=== PATIENT | female | born 1935 | race Caucasian/White ===

== ENCOUNTER 2019-11-04 22:36 | Observation (INO) | payer MEDICARE, SELFPAY ==
--- NOTE | 2019-11-04 22:30 | RT.EKG_ITS ---
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 No evidence of STEMI. No significant ST elevations or depressions. Negativ e for SCARBOSA criterion
[2019-11-04 22:41] VITALS: BP 165/70; PULSE 91; RESP 22; TEMP 36.6; O2SAT 96
--- NOTE | 2019-11-04 22:45 | DI.RAD_ITS ---
EXAM: XR CHEST 2V PA LATERAL CLINICAL HISTORY: chest pain, central TECHNIQUE: 2D digital imaging was performed. COMPARISON: No exams were available for comparison FINDINGS: MEDIASTINUM: Normal. HEART: Normal. PULMONARY VASCULATURE: Normal. LUNGS: Clear. PLEURAL SPACE: No pleural effusion or pneumothorax. BONE:Age-appropriate degenerative changes are present. OTHER FINDINGS:Normal. IMPRESSION: No acute pulmonary findings. DATA REPOSITORY: RADIATION DOSE DELIVERED:
[2019-11-04 22:47] VITALS: BP 146/64; PULSE 83; PULSE 86; RESP 21; O2SAT 95
--- NOTE | 2019-11-04 22:48 | W.ED.GENAD ---
Discharge Plan Disposition Patient Disposition: [facility] INPATIENT Condition: Good Discharge Details Chief Complaint: Chest Pain Clinical Impression: Chest pain Admit Date/Time: 11/05/19 02:26 Admit Provider: Manish Mccloud Attending Provider: Manish Mccloud Primary Care Provider: Indy Junior ED Provider: Maxwell Harding Discharge Data Discharge Date/Time-TO BE ENTERED AT DEPARTURE: 11/05/19 03:19 Medical Decision Making 84-year-old female with very little past medical history except for arthritis who presents today for evaluation of chest pain. Patient states that she has recently moved from her 3 bedroom house to an apartment. During the moving process she did notice increased fatigue, yesterday she noticed a mild amount of pressure in her lower chest region, it would come and go, no known aggravating or relieving factors. Today at noon she noticed that it got notably worse and constant. She describes it as an achy pressure-like sensation as if there is something tight around her chest. She has noticed increased fatigue but denies any cough, shortness of breath, pleuritic chest pain, arm neck or shoulder pain. She denies any aggravating or relieving factors. She denies any worsening of her symptoms with exertion. She denies any change in her symptoms when lying flat or sitting upright. She has noticed occasional diarrhea over the last day, but no blood. She denies any cough, or previous symptoms like this. Last stress test was greater than 10 years ago. She has no cardiac history. No history of myocardial infarction in her parents. She does have a history of pacemaker with her mother though. All of her children are adopted. She did smoke 60 years ago. She has no other complaints at this time. Denies PE risk factors such as recent long car rides, immobilization, recent surgery, prior history of DVT or PE, family history of PE or DVT, morbid obesity, exogenous estrogen and smoking, hemoptysis, history of cancer. Physical exam is notably benign, no reproducible chest pain. Patient is requested to hold off on any aspirin as it notably upsets her stomach. Symptoms appearing consistent with ACS, but because of her age it is certainly on the differential, as is PE for which we will get a d-dimer. Nitroglycerin did not improve her symptoms at all here. In fact actually slightly made it worse. Will give a GI cocktail though. Will monitor closely evaluate for concerning etiologies and reassess. There is certainly a chance this may just be a musculoskeletal etiology as well but given her age and risk factors I feel that further work-up is indicated currently. 12:10 AM Patient's laboratory work-up is returned notably unremarkable, no white count, bandemia or left shift. D-dimer is age-adjusted negative at 636. Electrolytes normal, renal function normal, troponin normal. Chest x-ray negative for acute process. Patient symptoms are unrelieved with nitroglycerin, also unchanged by GI cocktail. With the patient's age, and atypical symptoms I do feel that she would benefit from serial troponins and or further cardiac evaluation. We did discuss admission versus discharge and close follow-up, patient's preference certainly to stay overnight which I think is notably reasonable given her age and typical symptomatology. We will plan to admit, with continued serial troponins, likely stress test in the morning if available. 2 AM Repeat troponin has returned to normal. EKG does demonstrate slight changes. Continue to recommend admission. Discussed case with Dr. Mccloud, agrees with the assessment and plan. Of note bedside ultrasound was performed but I did have notable difficulty in the evaluation of the cardiac images, no significant pericardial effusion. Seems to demonstrate reasonable ejection fraction throughout. I have extensively reviewed the treatment plan with the patient. I have addressed all patient concerns at this time. I have also discussed the plan with the admitting physician and they agree with the current assessment and plan and have agreed to assume responsibility for the patient. All parties demonstrate verbal understanding and agreement with our assessment and plan at this time. 4:40 AM I did speak with the patient's daughter , and discussed the case with her as well. 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 No evidence of STEMI. No significant ST elevations or depressions. Negative for SCARBOSA criterion EKG 00:19 Rate 86, intervals normal, sinus rhythm, right bundle branch block, slight alteration from EKG earlier this evening. T waves in V1 and V2 are now upright, minimal flattening of V4 V5 and V6 comparatively, no evidence of significant ST elevations or depressions though, no evidence of STEMI negative for SCARBOSSA bacteria. FINDINGS: Lungs: Clear lungs. Pleural space: No pneumothorax. No sizeable effusion. Heart/Mediastinum: Cardiomediastinal silhouette is within normal limits. Bones/joints: Scattered bony degenerative changes. IMPRESSION: No acute cardiopulmonary process. Thank you for allowing us to participate in the care of your patient. Dictated and Authenticated by: Tunde Eldridge DO 11/04/2019 11:58 PM Eastern Time ([place] & [place]) HPI General Date/Time Provider Initiated Documentation: 11/04/19 22:37. HPI Narrative: 84-year-old female with very little past medical history except for arthritis who presents today for evaluation of chest pain. Patient states that she has recently moved from her 3 bedroom house to an apartment. During the moving process she did notice increased fatigue, yesterday she noticed a mild amount of pressure in her lower chest region, it would come and go, no known aggravating or relieving factors. Today at noon she noticed that it got notably worse and constant. She describes it as an achy pressure-like sensation as if there is something tight around her chest. She has noticed increased fatigue but denies any cough, shortness of breath, pleuritic chest pain, arm neck or shoulder pain. She denies any aggravating or relieving factors. She denies any worsening of her symptoms with exertion. She denies any change in her symptoms when lying flat or sitting upright. She has noticed occasional diarrhea over the last day, but no blood. She denies any cough, or previous symptoms like this. Last stress test was greater than 10 years ago. She has no cardiac history. No history of myocardial infarction in her parents. She does have a history of pacemaker with her mother though. All of her children are adopted. She did smoke 60 years ago. She has no other complaints at this time. Denies PE risk factors such as recent long car rides, immobilization, recent surgery, prior history of DVT or PE, family history of PE or DVT, morbid obesity, exogenous estrogen and smoking, hemoptysis, history of cancer. Related Data Home Medications Medication Instructions Recorded Confirmed naproxen sodium 220 mg PO PRN 02/12/13 11/04/19 Allergies Allergy/AdvReac Type Severity Reaction Status Date / Time aspirin AdvReac Mild abdominal Verified 11/04/19 22:53 discomfort General Stated Complaint: Chest Pain OWEN: 2 Review of Systems All systems reviewed & are unremarkable except as noted in HPI and below PFSH Medical History Arthritis of knee (Acute 02/12/13) Hyperlipidemia (Acute) Surgical History History of appendectomy (Chronic) History of cataract surgery (Chronic 04/22/16) Right- 04/22/16 Left- 05/06/16 History of dilation and curettage (Acute) History of tonsillectomy (Chronic) Family History Father Colon cancer Diabetes Hypertension Heart disease Mother Heart disease Low blood pressure Osteoporosis Other Hyperlipidemia Personal history of malignant neoplasm Social History Smoking/Tobacco Use Status: Former Tobacco Use Quit Date: 04/25/1960 Tobacco: How many years used: 10 Alcohol Intake: former Drug use: Never Substance use type: does not use Household members: none Housing: house Number of Children: 4 number of grandchildren: 11 Do you need help understanding health information?: Rarely current occupation: retired Sexually active: No Do you think of yourself as: straight/heterosexual Current gender identity: female What is your relationship status?: Panel score (0-1 are the most socially isolated patients): 0 What type of physical activity do you participate in: other Details: housekeeping of large home, up and down stairs, dog and cat care Do you feel safe at home: Yes Do you feel safe in your relationship?: Yes Exam Narrative Exam Narrative: 1.Const: Well-nourished, Well-developed, appearing stated age 2.Eyes: PERRL, no conjunctival injection, and symmetrical lids. 3.ENT: Atraumatic external nose and ears. Moist MM. Neck: Symmetric, trachea midline, No thyromegaly. 4.CVS: +S1/S2, mild systolic murmur auscultated loudest at second left and right intercostal space in the parasternal border. Peripheral pulses 2+ and equal in all extremities. Brisk capillary refill in all extremities. No reproducible chest wall tenderness 5.RESP: Unlabored respiratory effort. Clear to auscultation bilaterally. No wheezes rales or rhonchi 6.GI: Soft, Nontender/Nondistended, No hepatosplenomegaly. No guarding or rebound. 7.MSK: Normocephalic/Atraumatic, Extremities w/o deformity or ttp No cyanosis or clubbing, Normal movement of all extremities 8.Skin: Warm, Dry. No rashes or lesions. 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 Sensation grossly intact, no focal neurologic deficits. 10.Psych: (AAO) x3. Appropriate mood and affect Course Vital Signs Vital signs: Vital Signs Temperature 36.6 C 11/04/19 22:41 Pulse 91 H 11/04/19 22:41 Respiratory Rate 22 11/04/19 22:41 Blood Pressure 165/70 H 11/04/19 22:41 Pulse Oximetry 96 11/04/19 22:41 Temperature 36.6 C 11/04/19 22:41 Temperature Source Temporal Artery Scan 11/04/19 22:41 Pulse 91 H 11/04/19 22:41 Respiratory Rate 22 11/04/19 22:41 Respiratory Effort 11/04/19 22:43 Blood Pressure 165/70 H 11/04/19 22:41 Blood Pressure Position Sitting 11/04/19 22:41 Pulse Oximetry 96 11/04/19 22:41 Oxygen Delivery Method Room Air 11/04/19 22:41 Oxygen Flow Rate 0 11/04/19 22:41 Pain Level 2 11/04/19 22:41
[2019-11-04 22:51] VITALS: BP 155/67; PULSE 79; PULSE 80; RESP 13; O2SAT 94
[2019-11-04 22:56] VITALS: BP 138/64; PULSE 81; RESP 17; O2SAT 94
[2019-11-04 22:57] LABS: Abs Immature Grans 0.01 k/cumm (0.0-0.09); Absolute Basophil Count 0.01 k/cumm (0.0-0.2); Absolute Lymphocyte Count 1.52 k/cumm (1.2-3.4); Absolute Monocyte Count 0.78 k/cumm (0.11-0.7); Absolute Neutrophil Count 5.85 k/cumm (1.2-6.7); Basophils % 0.1; Eosinophils % 1.2; HCT 37.9 % (36.0-46.0); HGB 12.7 g/dL (12.0-15.5); Immature Grans % 0.1 %; Lymphocytes % 18.4; Mean Corp. HGB Concentration 33.5 g/dL (32.0-36.0); Mean Corpuscular Hemoglobin 27.5 pg (27.0-33.0); Mean Corpuscular Volume 82.2 fL (80-95); Mean Platelet Volume 10.5 fL (8.0-11.0); Monocytes % 9.4; Neutrophils % 70.8; Platelet Count 188 x1000/uL (130-400); RBC 4.61 m/cumm (4.00-5.20); RBC Distribution Width 16.3 % (11.7-14.6); White Blood Cell Count 8.27 k/cumm (4.4-10.8)
[2019-11-04 23:01] VITALS: BP 122/71; PULSE 87; PULSE 89; RESP 16; O2SAT 95
[2019-11-04 23:12] LABS: ALT 18 U/L (14-59); AST 19 U/L (15-37); Albumin 3.5 g/dL (3.4-5.0); Alkaline Phosphatase 64 U/L (46-116); Anion Gap 11.3 mmol/L (3-11); BUN 13 mg/dL (7-18); Bilirubin, Total 0.7 mg/dL (0.2-1.0); CO2 24.7 mmol/L (21.0-32.0); CREATININE 0.64 mg/dL (0.55-1.02); Calcium 8.5 mg/dL (8.5-10.1); Chloride 102 mmol/L (98-107); Glucose 127 mg/dL (74-106); Magnesium 1.8 mg/dL (1.8-2.4); Potassium 3.6 mmol/L (3.5-5.1); Sodium 138 mmol/L (136-145); Total Protein 7.2 g/dL (6.4-8.2)
[2019-11-04 23:13] LABS: Troponin I < 0.05 ng/mL (<0.06)
[2019-11-04 23:28] LABS: D-Dimer 636 ng/mlFEU (<500)
[2019-11-04 23:31] VITALS: BP 129/57; PULSE 63; PULSE 64; RESP 12; O2SAT 94
--- NOTE | 2019-11-04 23:59 | DI.VRAD_ITS ---
PROCEDURE INFORMATION: Exam: XR Chest, 2 Views Exam date and time: 11/04/2019 11:43 PM Age: 84 years old Clinical indication: Other: Central; Patient HX: Chest pain for a few days increasing TECHNIQUE: Imaging protocol: XR of the chest Views: 2 views. COMPARISON: No relevant images were readily available for comparison purposes. FINDINGS: Lungs: Clear lungs. Pleural space: No pneumothorax. No sizeable effusion. Heart/Mediastinum: Cardiomediastinal silhouette is within normal limits. Bones/joints: Scattered bony degenerative changes. IMPRESSION: No acute cardiopulmonary process. Dictated and Authenticated by: Tunde Eldridge MD. Ordering:LAZARO Arreola MD
[2019-11-05] VITALS (9 sets, daily range): BP systolic 121–161; BP diastolic 48–93; PULSE 52–68; RESP 11–22; TEMP 36.4–36.5; O2SAT 92–99
--- NOTE | 2019-11-05 | RT.EKG_ITS ---
APPROVED REPORT Exam: Resting ECG Patient Location: E HR:57 bpm ECG Measurements Heart Rate 57 AXIS OH 165 P 34 QRSd 131 QRS -38 QT 458 T 14 QTc 446 <Conclusion> EKG 00:19 Rate 86, intervals normal, sinus rhythm, right bundle branch block, slight alteration from EKG earlie r this evening. T waves in V1 and V2 are now upright, minimal flattening of V4 V5 and V6 comparative ly, no evidence of significant ST elevations or depressions though, no evidence of STEMI negative for SCARBOSSA bacteria.
[2019-11-05 02:05] LABS: Troponin I < 0.05 ng/mL (<0.06)
--- NOTE | 2019-11-05 06:26 | HPE_ITS ---
Date of service: 11/05/19 Time of Service: 06:26 Assessment and Plan Assessment and plan (1) Atypical chest pain: Start date: 11/05/19 Status: Acute Assessment and plan: This is an 84-year-old lady who presented with atypical chest pressure which was retrosternal and not leave by GI cocktail or nitroglycerin sublingually. She had mild EKG changes with V1-2 T wave normalization repeat EKG in the ED. Is pain-free at the time I saw her. She said that had retrosternal chest pressure crescendoed before resolving and felt like ingestion, we need to consider gallbladder disease. Only risk factors for heart disease include hyperlipidemia and increased abdominal girth but she is very active with very remote history of smoking tobacco and no history of hyp ertension. There is no severe family history of heart disease. We will have her seen by cardiology with an exercise stress test and update her lipid profile as well as ultrasound her gallbladder. She is n.p.o. She is a full code. (2) Heart murmur, systolic: Start date: 11/05/19 Status: Acute Assessment and plan: Echocardiogram to assess. The murmur clinically is aortic stenosis and she has no history of progressive dyspnea upon exertion. (3) Hyperlipidemia: Status: Chronic Assessment and plan: Update lab this morning for cardiovascular risk stratification. Qualifiers: Hyperlipidemia type: unspecified Qualified Code(s): E78.5 - Hyperlipidemia, unspecified History of Present Illness History of Present Illness Chief Complaint: Retrosternal chest pressure Narrative: This is a generally healthy 84-year-old lady who has been over 10 years who presented to the ED with retrosternal chest pressure setting over 24 hours. She recently moved from her house to an apartment and had inc reased activity lifting boxes but no chest discomfort during her lifting and work. She began to have intermittent retrosternal chest pressure as tightness which was 2-3 out of 10 the day before presentation and on the day of presentation it became more severe rated 5 out of 10 and not resolving cre scendoing to 7-8 out of 10. She had no associated nausea or vomiting. She had no complaints of dyspnea or radiation of the pain. She had had a previous stress test many years ago but has had no recent cardiac work-up or cardiac history though she does have a systolic murmur auscultated in the ED. In the ED her EKG had no acute changes but some T wave normalization in V1/V2. At the time I saw the patient she was pain-free. She does still have her gallbladder. She denies the pain being associated with eating. She admitted for observation and to repeat troponins this morning as well as obtain cardiac consultation with bubble exercise stress test. I will also obtain an ultrasound gallbladder. Patient only significant history is arthritis for which she takes naproxen. She thought that the retrosternal chest pressure was like heartburn or indigestion but he did not want to a GI cocktail. Patient had no significant family history of heart disease and all of her children are adopted. She has had no previous chest pain and has had no abdominal surgeries except for an appendectomy. She smoked when she was in her 20s. Review of Systems Narrative: 13 point review of systems otherwise unrevealing or stable. The patient is moderately obese and does have generalized arthritis. She is very active in her group home. [facility] Medical History Arthritis of knee (Acute 02/12/13) Hyperlipidemia (Acute) Surgical History History of appendectomy (Chronic) History of cataract surgery (Chronic 04/22/16) Right- 04/22/16 Left- 05/06/16 History of dilation and curettage (Acute) History of tonsillectomy (Chronic) Family History Father Colon cancer Diabetes Hypertension Heart disease Mother Heart disease Low blood pressure Osteoporosis Other Hyperlipidemia Personal history of malignant neoplasm Social History Smoking/Tobacco Use Status: Former Tobacco Use Quit Date: 04/25/1960 Tobacco: How many years used: 10 Alcohol Intake: former Drug use: Never Substance use type: does not use Household members: none Housing: house Number of Children: 4 number of grandchildren: 11 Do you need help understanding health information?: Rarely current occupation: retired Sexually active: No Do you think of yourself as: straight/heterosexual Current gender identity: female What is your relationship status?: Panel score (0-1 are the most socially isolated patients): 0 What type of physical activity do you participate in: other Details: housekeeping of large home, up and down stairs, dog and cat care Do you feel safe at home: Yes Do you feel safe in your relationship?: Yes Meds Home Medications and Allergies Home Medications Medication Instructions Recorded Confirmed Type naproxen sodium 220 mg PO PRN 02/12/13 11/04/19 History Allergies Allergy/AdvReac Type Severity Reaction Status Date / Time aspirin AdvReac Mild abdominal Verified 11/04/19 22:53 discomfort Exam Narrative Exam Narrative: General: Patient appears appropriate age, no acute distress, alert and oriented x3 and moderately obese over the trunk mostly. HEENT: Normocephalic, eyes with pupils equal and reactive light symmetrically, extraocular movement intact and sclera anicteric. Oropharynx with dry oral mucosa and fair dentition. External ears normal. Neck: Supple without JVD. Lungs: Clear to auscultation percussion. No focalizing findings. Back: Slightly stooped posture with no CVA tenderness. Breast: Exam deferred. Heart: 3/6 crescendo systolic murmur over left sternal border, regular rate and rhythm with no appreciable gallops. Abdomen: Slight guarding right upper quadrant but no Montoya sign and no palpable hepatosplenomegaly. Soft and nontender to palpation. Bowel sounds positive all quadrants. Genitalia/rectal: Exam deferred. Extremities: No pitting edema, cyanosis or clubbing. Arthritic changes of the larger joints. Fair range of motion of all joints. Skin: Darkly tanned, warm and dry with no rash noted. Neuro: Cranial nerves II-12 grossly intact, no focalizing motor deficits. Psych: Normal thought processes, remote and recent memory intact. Normal mood and affect. Results Labs Result diagrams: 11/04/19 22:50 11/04/19 22:50 Labs: Laboratory Results - last 24 hr 11/04/19 11/04/19 11/04/19 22:50 22:50 22:50 WBC 8.27 RBC 4.61 Hgb 12.7 Hct 37.9 MCV 82.2 MCH 27.5 MCHC 33.5 RDW 16.3 H Plt Count 188 MPV 10.5 Immature Gran % 0.1 Neutrophils % 70.8 Lymphocytes % 18.4 Monocytes % 9.4 Eosinophils % 1.2 Basophils % 0.1 Absolute Neutrophils 5.85 Absolute Lymphocytes 1.52 Absolute Monocytes 0.78 H Absolute Eosinophils 0.10 Absolute Basophils 0.01 D-Dimer 636 H Sodium 138 Potassium 3.6 Chloride 102 Carbon Dioxide 24.7 Anion Gap 11.3 H BUN 13 Creatinine 0.64 Estimated GFR/1.73 m2 >= 60.00 Glucose 127 H Calcium 8.5 Magnesium 1.8 Total Bilirubin 0.7 AST 19 ALT 18 Alkaline Phosphatase 64 Troponin I < 0.05 Total Protein 7.2 Albumin 3.5 11/05/19 01:45 WBC RBC Hgb Hct MCV MCH MCHC RDW Plt Count MPV Immature Gran % Neutrophils % Lymphocytes % Monocytes % Eosinophils % Basophils % Absolute Neutrophils Absolute Lymphocytes Absolute Monocytes Absolute Eosinophils Absolute Basophils D-Dimer Sodium Potassium Chloride Carbon Dioxide Anion Gap BUN Creatinine Estimated GFR/1.73 m2 Glucose Calcium Magnesium Total Bilirubin AST ALT Alkaline Phosphatase Troponin I < 0.05 Total Protein Albumin Last Vital Signs Temp 36.5 C 11/05/19 03:22 Pulse 66 11/05/19 03:22 Resp 18 11/05/19 03:22 BP 139/68 11/05/19 03:22 Pulse Ox 99 11/05/19 03:22 COVID-19 Screening Have you,or household,traveled outside [place] in last 14 days?: No Had IN PERSON contact w/suspected or confirmed C-19 person: No
--- NOTE | 2019-11-05 07:41 | PDOC.CMIN ---
- If Service Date Differs Date of service: 11/05/19 Time of Service: 07:41 Care Management Initial Assess REASON FOR HOSPITALIZATION:: Chest pain PAST MEDICAL HISTORY/PAST SURGICAL HISTORY:: Arthritis of knee (Acute 02/12/13). Hyperlipidemia (Acute). appendectomy (Chronic). History of cataract surgery (Chronic 04/22/16). Right- 04/22/16. Left- 05/06/16. History of dilation and curettage (Acute). History of tonsillectomy (Chronic) PREVIOUS FUNCTIONAL STATUS/SOCIAL/FAMILY SUPPORTS:: Maria Fernanda is a 84 year old female admitted with chest pain. She was in 2008 and lives alone. Maria Fernanda has 4 children that are grown and supportive. She is independent with ADL's, transportation and meals. 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 Maria Fernanda has a uzleta retirever at home. CURRENT FUNCTIONAL STATUS:: Maria Fernanda is sitting up in her chair, she is alert and engaged. She continues to have chest discomfort which provider is aware. Maria Fernanda was seen by municipal firefighter today, treatment to start today with PPI concerns that pain may be related to GERD and increase stress. Maria Fernanda described a recent incline in her stress and she is selling her home and moving to a small apartment. ADVANCE DIRECTIVES:: On file at [facility] agent Kristyn Hagen is the alternate (others to be consulted children) Has patient been provided with info about the portal/API?: Yes Did the patient sign up for the portal?: No (Enrolled) CODE STATUS:: Full Code INSURANCE COVERAGE / FINANCIAL ISSUES:: Medicare and AARP CURRENT HOME/COMMUNITY SERVICES/EQUIPMENT:: No current services in the community PRIMARY CARE PHYSICIAN:: POTENTIAL DISCHARGE NEEDS:: Follow up with primary care scheduled prior to discharge PATIENT/FAMILY EDUCATION NEEDS:: Discharge edcuation, limitations, medication management and follow up plan of care including ask me three. ANTICIPATED BARRIERS TO DISCHARGE:: No anticipated barriers TRANSPORTATION:: Via private car with family at time of discharge PLAN:: Maria Fernanda will be discharged home today pending test results and resolve of her chest discomfort. Anticipate no additional services at time of discharge. CM will continue to assess for discharge needs.
--- NOTE | 2019-11-05 08:00 | DI.US_ITS ---
EXAM: US ABDOMEN LIMITED CLINICAL HISTORY: Atypical chest pain, retrosternal pressure TECHNIQUE: Ultrasound abdomen performed using standard protocol. COMPARISON: No exams were available for comparison FINDINGS: ABDOMINAL AORTA AND IVC: Visualized portions normal caliber. PANCREAS: Normal where visualized. LIVER: Normal. Hepatopedal flow in the Portal Vein. GALLBLADDER: No evidence of cholelithiasis. No evidence of wall thickening. No pericholecystic fluid identified. BILIARY SYSTEM: Common bile duct measures 5.5 mm. No intrahepatic biliary ductal dilation. THORNTON'S SIGN: Negative. KIDNEYS: Right kidney is unremarkable. No evidence of renal calculi. No evidence of hydronephrosis. No renal mass or cyst identified. ASCITES: None seen. IMPRESSION: No evidence of cholelithiasis or biliary ductal dilatation. DATA REPOSITORY:
--- NOTE | 2019-11-05 08:00 | DI.US_ITS ---
APPROVED REPORT EXAM: Comprehensive 2D, Doppler, and color-flow Echocardiogram Patient Location: In-Patient Room/Bed: 212 Design Drafter: Chinyere Gabriel RDCS (AE) Indications: Atypical chest pain, Murmur Other Information Study Quality: Good Conclusion Normal left ventricular wall thickness and chamber size. Estimated ejection fraction is 60%. There are no segmental wall motion abnormalities Normal right ventricular size and systolic function Both atria are normal in size Valve is trileaflet and sclerotic without stenosis or regurgitation Mild mitral annular calcification. Trace mitral regurgitation Trace physiologic tricuspid regurgitation Wall motion Left Ventricle The left ventricle is normal size. The left ventricular systolic function is normal. The left ventric ular ejection fraction is within the normal range. There is normal left ventricular wall thickness. T here is normal LV segmental wall motion. Transmitral Doppler flow pattern suggests impaired LV relaxa tion. There is no ventricular septal defect visualized. LVEF is 60%. Right Ventricle The right ventricle is normal size. The right ventricular systolic function is normal. The RVSP is 34 .3 mmHg. Right ventricle is borderline hypertrophied. Atria The left atrium size is normal. The right atrium size is normal. The interatrial septum is intact wit h no evidence for an atrial septal defect. Aortic Valve The Aortic valve is sclerotic. Aortic valve is thickened but has adequate excursion. Aortic valve is trileaflet. There is no aortic valvular stenosis. No aortic regurgitation is present. Mitral Valve Mild mitral annular calcification. No evidence of mitral valve stenosis. Trace mitral regurgitation. Tricuspid Valve The tricuspid valve is normal in structure. There is no tricuspid valve stenosis. Trace tricuspid reg urgitation. Pulmonic Valve The pulmonary valve is normal in structure. There is no pulmonic valvular stenosis. Mild pulmonic reg urgitation. Great Vessels The aortic root is normal in size. 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 Pericardium There is no pericardial effusion. There is no pleural effusion. 2D Dimensions IVSD d PLAX 1.00 cm F: 0.6-1.0 LV Vol A2C d MOD 133.8 mL LVPW d PLAX 1.00 cm F: 0.6 - 1.0 LV Vol A4C d MOD 122.8 mL LVID d PLAX 4.78 cm F: 3.8 - 5.2 LA Area A4C s MOD 23.01 cm2 LVDs 3.25 cm F: 2.2 - 3.5 LA Area A2C s MOD 24.27 cm2 Ao Root d 3.09 cm F: 2.7 - 3.3 LV EF A4C MOD 61.7 % RA Area A4C 14.05 cm2 LV EF A2C MOD 62.5 % Ao Asc Diam d 3.65 cm F: 2.3 - 3.1 LV EF Biplane MOD 62.5 % LV EF Teichholz 59.4 % SV 82.11 mL LVEF (Riggs's) 62.53 % F: 54 - 74 LV Volume 131.31 mL F: 46 - 106 LV Volume Index 66.31 mL/m2 F: 29 - 61 LV Vol Biplane MOD 131.3 mL FS 31.55 % M-Mode TAPSE 2.57 cm (M/F) >1.7 LV Diastology MV E' medial 0.040 (>0.07 m/s) E/A Ratio 0.7 LV E/e MED 21.95 (<14) MV E Vmax 0.89 (0.4-1.3 m/s) MV E' lateral 0.051 (>0.1 m/s) MV A Vmax 1.20 (0.4-1.3 m/s) LV E/e LAT 17.25 (<14) MV E/A Ratio 0.71 MV E/E' medial 21.97 MV E/E' lateral 17.26 Aortic Valve LVOT Area 2.98 cm2 AoV Area Vmax 2.11 cm2 LVOT Vmax 1.26 m/s MERYL Mean Maurilio. 1.92 cm2 LVOT Mean Maurilio. 0.84 m/s LVOT Peak Grad 6.4 mmHg LVOT Mean Grad 3.3 mmHg LVOT VTI 0.350 m LVOT Diam s 1.90 cm AoV Vmax 1.78 m/s Velocity Ratio 0.70 AoV Mean Maurilio. 1.30 m/s AoV Peak Grad 12.7 mmHg LVOT SV 104.21 mL AoV Mean Grad 7.5 mmHg AoV VTI 0.419 m AoV Area VTI 2.49 cm2 Mitral Valve MV DT 344 (160-240 msec) MV PHT 100 msec MV Area PHT 2.21 cm2 Pulmonary Valve PV Vmax 1.03 (0.5-1.5 m/s) RVOT Peak Gr. 1.92 mmHg PV Peak Grad 4.2 mmHg RVOT Mean Gr. 1.35 mmHg PV Mean Grad 2.6 mmHg RVOT VTI 0.197 m PV VTI 0.235 m RVOT Vmax 0.69 m/s Tricuspid Valve TR Peak Grad 31.3 mmHg TR Vmax 2.80 m/s RA Pressure 3.00 mmHg RVSP (TR) 34.3 mmHg
[2019-11-05] MEDS: Heparin 5,000 UNITS/ML VIAL 5000 UNITS SC (10:07)
--- NOTE | 2019-11-05 10:26 | W.CARDCONSUL ---
Date of service: 11/05/19 Time of Service: 10:27 Assessment and Plan Assessment and plan (1) Atypical chest pain: Status: Acute Assessment and plan: The patient's chest pain as described is atypical for cardiac etiology. There is prolonged. There are no electrocardiographic changes. There is no evidence of myocardial necrosis or ischemia. As discussed with the hospitalist provider this is most likely gastrointestinal and efforts should be made to achieve symptomatic improvement If that occurs, I think the patient could be discharged to outpatient follow-up, with consideration for some type of stress test evaluation in future Thank you for the opportunity to participate in the care of this patient History of Present Illness History of Present Illness Chief Complaint: Chest and epigastric pressure Narrative: This 84-year-old woman presented to the hospital because of a pressure sensation in her epigastric and low sternal area. She recently moved and has been lifting and carrying boxes. She did not have any specific symptoms related to this other than that she was fatigued. Later at rest she began to have a pressure sensation which initially would come and go but then became persistent. It was not related to activity. It was not really related to food. She thought it might be gas. She presented to the hospital where her electrocardiogram showed a right bundle branch block. Serial cardiac enzymes have been negative. She recently had an echocardiogram done which showed normal left ventricular systolic function with an ejection fraction of 60%. Her aortic valve was sclerotic without significant stenosis or regurgitation Review of Systems Cardiovascular Cardiovascular: Reports as per [facility] Medical History Arthritis of knee (Acute 02/12/13) Hyperlipidemia (Chronic) Surgical History History of appendectomy (Chronic) History of cataract surgery (Chronic 04/22/16) Right- 04/22/16 Left- 05/06/16 History of dilation and curettage (Acute) History of tonsillectomy (Chronic) Family History Father Colon cancer Diabetes Hypertension Heart disease Mother Heart disease Low blood pressure Osteoporosis Other Hyperlipidemia Personal history of malignant neoplasm Social History Smoking/Tobacco Use Status: Former Tobacco Use Quit Date: 04/25/1960 Tobacco: How many years used: 10 Alcohol Intake: former Drug use: Never Substance use type: does not use Household members: none Housing: house Number of Children: 4 number of grandchildren: 11 Do you need help understanding health information?: Rarely current occupation: retired Sexually active: No Do you think of yourself as: straight/heterosexual Current gender identity: female What is your relationship status?: Panel score (0-1 are the most socially isolated patients): 0 What type of physical activity do you participate in: other Details: housekeeping of large home, up and down stairs, dog and cat care Do you feel safe at home: Yes Do you feel safe in your relationship?: Yes Exam Narrative Exam Narrative: Well-developed well-nourished no acute distress Eyes Pupils: PERRL EOM: EOM intact bilaterally Neck Other: Neck is supple trachea is midline carotid pulsations are normal in upstroke and volume there are no bruits Resp Auscultation: clear to auscultation bilaterally Cardio Other: Heart is regular, 1/6 to 2/6 systolic ejection quality murmur Skin Other: Warm and dry Extrem Other: There is no significant peripheral edema Results Last Vital Signs Temp 36.4 C L 11/05/19 07:15 Pulse 64 11/05/19 07:15 Resp 15 11/05/19 07:15 BP 129/73 11/05/19 07:15 Pulse Ox 92 L 11/05/19 07:15 Labs Result diagrams: 11/04/19 22:50 11/04/19 22:50 Labs: Laboratory Results - last 24 hr 11/04/19 11/04/19 11/04/19 22:50 22:50 22:50 WBC 8.27 RBC 4.61 Hgb 12.7 Hct 37.9 MCV 82.2 MCH 27.5 MCHC 33.5 RDW 16.3 H Plt Count 188 MPV 10.5 Immature Gran % 0.1 Neutrophils % 70.8 Lymphocytes % 18.4 Monocytes % 9.4 Eosinophils % 1.2 Basophils % 0.1 Absolute Neutrophils 5.85 Absolute Lymphocytes 1.52 Absolute Monocytes 0.78 H Absolute Eosinophils 0.10 Absolute Basophils 0.01 D-Dimer 636 H Sodium 138 Potassium 3.6 Chloride 102 Carbon Dioxide 24.7 Anion Gap 11.3 H BUN 13 Creatinine 0.64 Estimated GFR/1.73 m2 >= 60.00 Glucose 127 H Calcium 8.5 Magnesium 1.8 Total Bilirubin 0.7 AST 19 ALT 18 Alkaline Phosphatase 64 Troponin I < 0.05 Total Protein 7.2 Albumin 3.5 11/05/19 01:45 WBC RBC Hgb Hct MCV MCH MCHC RDW Plt Count MPV Immature Gran % Neutrophils % Lymphocytes % Monocytes % Eosinophils % Basophils % Absolute Neutrophils Absolute Lymphocytes Absolute Monocytes Absolute Eosinophils Absolute Basophils D-Dimer Sodium Potassium Chloride Carbon Dioxide Anion Gap BUN Creatinine Estimated GFR/1.73 m2 Glucose Calcium Magnesium Total Bilirubin AST ALT Alkaline Phosphatase Troponin I < 0.05 Total Protein Albumin
[2019-11-05] MEDS: Pantoprazole 40 MG TABCR PO (10:39)
[2019-11-05 12:03] LABS: Calculated LDL 100 mg/dL (<100); Cholesterol 191 mg/dL (<200); HDL Cholesterol 85 mg/dL (40-60); TSH (W/Ref FT4) 0.97 uIU/mL (0.36-3.74); Triglyceride 34 mg/dL (<150)
[2019-11-05 12:04] LABS: Troponin I < 0.05 ng/mL (<0.06)
--- NOTE | 2019-11-05 12:06 | W.PM.DS.N ---
Date of service: 11/05/19 Time of Service: 12:06 DS: Diagnosis Discharge Diagnosis (1) Atypical chest pain: Start date: 11/05/19 Start time: 12:06 Status: Acute Asessment and Plan: Echo with EF 60%, no abnormalites, otherwise, Cardiology states heart not etiology to pain. Does not need an outpatient stress at this time. Pain appears to start in belly and work up to mid stress. Increase in stress recently, with moving and other stressors, also not on PPI or H2 niecy. U/S negative for gallbladder. Given dose of mylanta with lidocaine and pain was gone. Will d/c home on PPI and lidocaine mix f/u with PCP in 2 weeks. Discharge Plan Disposition Patient Disposition: HOME Condition: Good Discharge Details Chief Complaint: Chest Pain Clinical Impression: Chest pain Reason For Visit: ATYPICAL CHEST PAIN Admit Date/Time: 11/05/19 02:26 Admit Provider: Manish Mccloud Attending Provider: Manish Mccloud Primary Care Provider: Indy Junior ED Provider: Maxwell Harding Hospital Course Hospital Course: 84 y.o female with PMH of HLD other cespedes healthy and active. No cardiac history or family history of cardiac problems. Presented to ED with atypical CP onset after not doing anything. EKG in ED revealing SR with Right BBB. Given one nitro in ED that made pain worse. She was admitted to obs for further management of echo, overnight obs and u/s. Abd us negative for abnormality. Echo with EF 60% no other abnormalities. Teley revealing SR with BBB. Cardiology consulted agrees this is not cardiac in nature. Pt did have severe pain following the echo stating starting in her abd raising up in her chest to midsternum not raidating anywhere. Given mylanta and lidocaine with good releif. PPI was also started. She is being discharged home, her pain is gone, will continue GI cocktaial and PPI follow up with PCP in 1 week. Home Meds and New Rx's Prescriptions: New alum-mag hydroxide-simeth [Mylanta Maximum Strength] 400-400-40 mg/5 mL suspension 5 ml PO QID PRNQty: 355 RF: 0 Lidocaine Viscous 2 % solution 1 applic MM BID PRNQty: 600 RF: 0 Continued naproxen sodium 220 MG tablet 220 mg PO PRN RF: 0 Discharge Instructions Instructions: Chest Pain (DC), Gastroesophageal Reflux Disease (DC) Additional Instructions: Take lidocaine with mylanta as needed. Follow up with your PCP in 2 weeks Try to find positive stress relievers YOUR ECHO WAS VERY ASSURING Activity:: Activity as Tolerated Equipment/Supplies:: No Equipment Needed Diet:: As Tolerated Discharge Orders Discharge Orders: Discharge Order (Routine); Ordered 11/05/19 Ordered By: Dinora Melchor DS: Summary Status at Discharge Functional status at discharge: independent ambulation Overall status at discharge: patient is back to baseline Mental Status: mental status grossly normal Speech and Movement: speech and movement normal Mood: congruent mood Affect: normal affect Exam Narrative Exam Narrative: General: Patient appears appropriate age, no acute distress, alert and oriented x3 and moderately obese over the trunk mostly. HEENT: Normocephalic, eyes with pupils equal and reactive light symmetrically, extraocular movement intact and sclera anicteric. Oropharynx with dry oral mucosa and fair dentition. External ears normal. Neck: Supple without JVD. Lungs: Clear to auscultation percussion. No focalizing findings. Back: Slightly stooped posture with no CVA tenderness. Breast: Exam deferred. Heart: 3/6 crescendo systolic murmur over left sternal border, regular rate and rhythm with no appreciable gallops. Abdomen: Slight guarding right upper quadrant but no Montoya sign and no palpable hepatosplenomegaly. Soft and nontender to palpation. Bowel sounds positive all quadrants. Genitalia/rectal: Exam deferred. Extremities: No pitting edema, cyanosis or clubbing. Arthritic changes of the larger joints. Fair range of motion of all joints. Skin: Darkly tanned, warm and dry with no rash noted. Neuro: Cranial nerves II-12 grossly intact, no focalizing motor deficits. Psych: Normal thought processes, remote and recent memory intact. Normal mood and affect. Psych Mental Status: mental status grossly normal Speech and Movement: speech and movement normal Mood: congruent mood Affect: normal affect DS: Data Vitals/I&O Vitals and I&O: Vital Signs Temperature 36.5 C 11/05/19 11:30 Temperature Source Temporal Artery Scan 11/05/19 11:30 Pulse 57 L 11/05/19 11:30 Pulse Rhythm Irregular 11/05/19 09:45 Pulse 68 11/05/19 02:35 Respiratory Rate 16 11/05/19 11:30 Respiratory Effort 11/05/19 09:45 Respiratory Depth Normal 11/05/19 09:45 Respiratory Pattern Normal 11/05/19 09:45 Blood Pressure 126/73 11/05/19 11:30 Blood Pressure Mean 88 11/05/19 02:35 Blood Pressure Position Sitting 11/04/19 22:41 Pulse Oximetry 97 11/05/19 11:30 Oxygen Delivery Method Room Air 11/05/19 11:30 Oxygen Flow Rate 0 11/05/19 11:30 Pain Level 0 11/05/19 11:30 Intake & Output 11/04/19 11/05/19 11/05/19 23:59 11:59 23:59 Weight 85.275 kg 83.4 kg Data Completed and Pending Completed studies during hospitalization [Text1]: Conclusion Normal left ventricular wall thickness and chamber size. Estimated ejection fraction is 60%. There are no segmental wall motion abnormalities Normal right ventricular size and systolic function Both atria are normal in size Valve is trileaflet and sclerotic without stenosis or regurgitation Mild mitral annular calcification. Trace mitral regurgitation Trace physiologic tricuspid regurgitation FINDINGS: ABDOMINAL AORTA AND IVC: Visualized portions normal caliber. PANCREAS: Normal where visualized. LIVER: Normal. Hepatopedal flow in the Portal Vein. GALLBLADDER: No evidence of cholelithiasis. No evidence of wall thickening. No pericholecystic fluid identified. BILIARY SYSTEM: Common bile duct measures 5.5 mm. No intrahepatic biliary ductal dilation. MONTOYA'S SIGN: Negative. KIDNEYS: Right kidney is unremarkable. No evidence of renal calculi. No evidence of hydronephrosis. No renal mass or cyst identified. ASCITES: None seen. IMPRESSION: No evidence of cholelithiasis or biliary ductal dilatation. Labs on day of discharge: Labs from last 24 hours 11/05/19 11/05/19 11/05/19 11:22 01:45 00:49 WBC RBC Hgb Hct MCV MCH MCHC RDW Plt Count MPV Immature Gran % Neutrophils % Lymphocytes % Monocytes % Eosinophils % Basophils % Absolute Neutrophils Absolute Lymphocytes Absolute Monocytes Absolute Eosinophils Absolute Basophils D-Dimer Sodium Potassium Chloride Carbon Dioxide Anion Gap BUN Creatinine Estimated GFR/1.73 m2 Glucose Calcium Magnesium Total Bilirubin AST ALT Alkaline Phosphatase Troponin I < 0.05 < 0.05 Total Protein Albumin Triglycerides 34 Total Cholesterol 191 LDL Cholesterol, Calc 100 HDL Cholesterol 85 TSH 0.97 COVID-19 PCR Pending Nasopharyn COVID-19 PCR Pending Ref Test Perform Site Pending 11/04/19 11/04/19 11/04/19 22:50 22:50 22:50 WBC 8.27 RBC 4.61 Hgb 12.7 Hct 37.9 MCV 82.2 MCH 27.5 MCHC 33.5 RDW 16.3 H Plt Count 188 MPV 10.5 Immature Gran % 0.1 Neutrophils % 70.8 Lymphocytes % 18.4 Monocytes % 9.4 Eosinophils % 1.2 Basophils % 0.1 Absolute Neutrophils 5.85 Absolute Lymphocytes 1.52 Absolute Monocytes 0.78 H Absolute Eosinophils 0.10 Absolute Basophils 0.01 D-Dimer 636 H Sodium 138 Potassium 3.6 Chloride 102 Carbon Dioxide 24.7 Anion Gap 11.3 H BUN 13 Creatinine 0.64 Estimated GFR/1.73 m2 >= 60.00 Glucose 127 H Calcium 8.5 Magnesium 1.8 Total Bilirubin 0.7 AST 19 ALT 18 Alkaline Phosphatase 64 Troponin I < 0.05 Total Protein 7.2 Albumin 3.5 Triglycerides Total Cholesterol LDL Cholesterol, Calc HDL Cholesterol TSH COVID-19 PCR Nasopharyn COVID-19 PCR Ref Test Perform Site [facility] Medical History Arthritis of knee (Acute 02/12/13) Hyperlipidemia (Chronic) Surgical History History of appendectomy (Chronic) History of cataract surgery (Chronic 04/22/16) Right- 04/22/16 Left- 05/06/16 History of dilation and curettage (Acute) History of tonsillectomy (Chronic) Family History Father Colon cancer Diabetes Hypertension Heart disease Mother Heart disease Low blood pressure Osteoporosis Other Hyperlipidemia Personal history of malignant neoplasm Social History Smoking/Tobacco Use Status: Former Tobacco Use Quit Date: 04/25/1960 Tobacco: How many years used: 10 Alcohol Intake: former Drug use: Never Substance use type: does not use Household members: none Housing: house Number of Children: 4 number of grandchildren: 11 Do you need help understanding health information?: Rarely current occupation: retired Sexually active: No Do you think of yourself as: straight/heterosexual Current gender identity: female What is your relationship status?: Panel score (0-1 are the most socially isolated patients): 0 What type of physical activity do you participate in: other Details: housekeeping of large home, up and down stairs, dog and cat care Do you feel safe at home: Yes Do you feel safe in your relationship?: Yes
--- NOTE | 2019-11-05 14:08 | PDOC.CMDIS ---
- If Service Date Differs Date of service: 11/05/19 Time of Service: 14:08 LACE Index Scoring Tool - Questions: Length of Stay (in days): 1 Acuity (Admit via E.D.?): Yes E.D. Visits: 1 - Answers: Total Score: 5 Risk of Readmission: Low Risk Care Management Discharge Reason for Hospitalization: Chest pain Discharge Plan: Maria Fernanda will be discharged home with no anticipated needs she will follow up with primary care as directed. Family to transport home at time of discharge. Patient/Family Education Needs: Discharge education, limitations and follow up plan of care including ask me three and self management.
[2019-11-06 08:35] LABS: COVID-19 RT-PCR UVMMC Result Negative (Negative)
--- NOTE | 2019-11-06 08:36 | NUR.NOTE ---
Nursing Note: Negative Covid result reported to Med Surg @0830 11/06/19
== END 2019-11-05 14:28 | disposition home or self-care (01) ==
LOC: ER 11-05 03:08 → MS 11-05 03:20
PROVIDERS: Admitting Provider Family Medicine; Emergency Provider Student in an Organized Health Care Education/Training Program; PCP Student in an Organized Health Care Education/Training Program; Visit Provider Internal Medicine
DX: R07.89 Other chest pain (principal); Z03.818 Encounter for observation for suspected exposure to other biological agents ruled out; E78.5 Hyperlipidemia, unspecified; R01.1 Cardiac murmur, unspecified
CPT/HCPCS: 36415; 80053; 80061; 93005; 93306; 99217; 99219; 99252; 99285; U0003; 71046; 76705; 83735; 84443; 84484; 85025; 85379; 93010; 99213; 99236; G0378; J1644

== ENCOUNTER 2020-02-11 04:06 | Outpatient (CLI) | payer MEDICARE, SELFPAY ==
[2020-02-11 16:28] LABS: ALT 16 U/L (14-59); AST 12 U/L (15-37); Albumin 3.4 g/dL (3.4-5.0); Alkaline Phosphatase 64 U/L (46-116); Anion Gap 2.2 mmol/L (3-11); BUN 17 mg/dL (7-18); Bilirubin, Total 0.3 mg/dL (0.2-1.0); CO2 31.8 mmol/L (21.0-32.0); CREATININE 0.58 mg/dL (0.55-1.02); Calcium 8.7 mg/dL (8.5-10.1); Chloride 105 mmol/L (98-107); Glucose 104 mg/dL (74-106); Potassium 3.8 mmol/L (3.5-5.1); Sodium 139 mmol/L (136-145); Total Protein 6.6 g/dL (6.4-8.2)
== END 2020-02-11 04:26 ==
PROVIDERS: PCP Student in an Organized Health Care Education/Training Program; Visit Provider Student in an Organized Health Care Education/Training Program
DX: E78.5 Hyperlipidemia, unspecified (principal); Z79.1 Long term (current) use of non-steroidal anti-inflammatories (NSAID)
CPT/HCPCS: 36415; 80053

== ENCOUNTER → 2020-08-01 12:51 | Outpatient (BNVA) | payer MEDICARE, SELFPAY | PROVIDERS: PCP Student in an Organized Health Care Education/Training Program; Referring Provider Student in an Organized Health Care Education/Training Program; Visit Provider Surgery | DX: Z12.11 Encounter for screening for malignant neoplasm of colon (principal); Z12.12 Encounter for screening for malignant neoplasm of rectum; Z80.0 Family history of malignant neoplasm of digestive organs; Z86.010 Personal history of colon polyps ==

== ENCOUNTER 2020-08-22 01:58 | Outpatient (CLI) | payer MEDICARE, SELFPAY ==
[2020-08-22 10:24] LABS: Source Nasal/Nares
[2020-08-22 13:33] LABS: COVID-19 PCR Negative (Negative)
== END 2020-08-22 01:59 | disposition home or self-care (01) ==
LOC: LBO 01:58
PROVIDERS: PCP Student in an Organized Health Care Education/Training Program; Visit Provider Surgery
DX: Z20.822 Contact with and (suspected) exposure to COVID-19 (principal); Z01.818 Encounter for other preprocedural examination
CPT/HCPCS: 87635

== ENCOUNTER 2020-08-25 09:46 | Day surgery (SDC) | payer MEDICARE, SELFPAY ==
--- NOTE | 2020-08-25 06:42 | COLE_ITS ---
Date of service: 08/25/20 Time of Service: 10:48 Colonoscopy Report Date of procedure: 08/25/20 Pre-op diagnosis general: Hx of colon polyps, changes in bowel habits Post-op diagnosis procedure note: other (polyps, severe sigmoid diverticulosis) Procedure: Colonoscopy with polypectomy Surgeon: Katie Vieyra Anesthesia Type: General:No Airway (ASA 2/ Ronni Banegas, ANDIE) Pathology: other (AScending and descending polyp) Complications: None Disposition: same day Indications: 85 year old female overdue for a colonoscopy with a history of polyps, family history of colon cancer and resent difficulty in evacuating the stool. Stool has not changed. It is soft. Risks, benefits and complications have been reviewed. Complications include but are not limited to bleeding, pain, perforation, missed small lesion/polyp, sore throat, aspiration and adverse reaction to the medications. Questions were entertained and answered to their satisfaction and they wished to proceed. No guarantees were given or implied. COVID-19 testing explained to the patient. Reason for test reviewed. Quarantine per state requirements reviewed with patient. Patient understands and agrees to testing. Prep: Miralax/Dulcolax Procedure Start Time: 10:48 Procedure End Time: 11:14 Retraction Time: 17 minutes Findings: Severe sigmoid diverticulosis 2 small sessile polyps Procedure Description: After informed consent was obtained the patient was taken to the procedure room and placed in a left decubitous position. Monitors were applied and a time out was done. The patients name, date of , procedure, allergies to medications and metal in their body was reviewed. The patient was then sedated. Once sedated and comfortable a rectal exam was done. External exam was normal. Internal exam revealed a normal sphincter tone and no palpable masses. The scope was then introduced and retro-flexed. Grade 1 internal hemorrhoids were identified on retro-flexion. No polyps or masses were identified on retro- flexion. The scope was then advanced to the cecum without difficulty. The ileocecal vlave and appendiceal orifice were identified. The prep was adequate. The scope was then slowly retracted over 17 minutes back into the rectum. Polyps were removed with cold forceps in the ascending colon and descending colon. There was severe sigmoid diverticulosis noted. The scope was removed and the patient was woken up and taken back to Same day surgery in stable condition. The patient tolerated the procedure well and there were no immediate complications. Follow up: The patient should follow up in as needed unless they develop changes in bowel habits or other new gastrointestinal complaints.
--- NOTE | 2020-08-25 06:43 | W.PM.DSUDISC ---
Discharge Plan Disposition Patient Disposition: HOME Condition: Good Discharge Details Reason For Visit: Colonoscopy Attending Provider: Katie Vieyra Primary Care Provider: Indy Junior Home Meds and New Rx's Prescriptions: Continued naproxen sodium 220 MG tablet 220 mg PO PRN RF: 0 latanoprost 0.005 % drops 1 drp ophthalmic (eye) HS RF: 0 Discharge Instructions Instructions: Diverticulosis (DC) Additional Instructions: Findings: 2 small polyps Diverticulosis Follow up: as needed Please call if you develop: fevers >101.5 Nausea or Vomiting Abdominal pain that is not transient Rectal bleeding that is more then a tbsp A hard abdomen and inability to pass gas DAY SURGERY UNIT POST ENDOSCOPY INSTRUCTIONS Instructions for everyone who is given Anesthesia: For your safety, please do the following for the next 24 Hours: a. Do not drive or operate dangerous equipment b. Do not drink alcohol beverages or use any recreational drugs for the first 24 hours or while taking pain medications. The medications in your body may have a reaction that can be dangerous. c. Do not make any important decisions or sign any important papers 1. Generally there are no restrictions on your activity after a day or so has gone by, but you may feel a bit fatigued for a few days. 2. After you arrive home you may have a light meal and return to a normal diet as you can tolerate it without feeling sick to your stomach. 3. After surgery, you may feel pain or discomfort. This should be only transient, but if it persists please contact your doctor. 4. If there are any questions regarding the findings of your procedure, please feel free to contact your doctor. 6. If you are unable to contact your doctor with a problem, contact the hospital at [phone]. 7. Continue all your regular medications unless directed otherwise. I understand the above instructions and have no questions. Signature of Patient or Responsible Adult Escort Date/Time Name of Responsible Adult Escort Signature of Nurse Date/Time Activity:: Activity as Tolerated Diet:: High Fiber Discharge Orders Discharge Orders: Discharge Order (Routine); Ordered 08/25/20 Ordered By: Katie Vieyra
--- NOTE | 2020-08-25 09:48 | W.ANESPRE ---
General Info Date of Service Date Performed: 08/25/20 Height: 5 ft 7 in Weight: 83.688 kg Body Mass Index (BMI): 28.9 Surgical Procedure: Operation Date: 08/25/20 11:05 Proposed Procedures Side Surgeon p Colonoscopy Katie Vieyra MD Meds Allergies and Home Medications Allergies Allergy/AdvReac Type Severity Reaction Status Date / Time aspirin AdvReac Mild abdominal Verified 08/25/20 10:11 discomfort Home Medication Medication Instructions Recorded naproxen sodium 220 mg PO PRN 02/12/13 latanoprost 1 drp OPHTHALMIC (EYE) HS 08/21/20 Current Visit Medications: Current Medications Generic Name Dose Route Start Last Admin Trade Name Freq PRN Reason Stop Dose Admin Hyoscyamine Sulfate 0.125 mg 08/25/20 06:43 Hyoscyamine 0.125 Mg Sl/Oral/Chew SL DIRECTED PRN Ringer's Solution 1,000 mls @ 80 mls/hr 08/25/20 06:00 IV 09/21/20 23:59 INFUSION [facility] IV Miscellaneous Supplies 1 each 08/25/20 06:00 Iv Access IV 09/21/20 23:59 DIRECTED SHAYE Ondansetron HCl 4 mg 08/25/20 06:43 Ondansetron 4 Mg/2 Ml Vial IVP Q4H PRN PRN Nausea / Vomiting Sodium Chloride 0 ml 08/25/20 06:00 Normal Saline Flush 10 Ml Syr IV 09/21/20 23:59 PRN PRN Sodium Chloride 0 ml 08/25/20 06:00 Normal Saline 10 Ml Vial IJ 09/21/20 23:59 DIRECTED PRN Sterile Water 0 ml 08/25/20 06:00 Water,Injection,Sterile 10 Ml Vial IJ 09/21/20 23:59 DIRECTED PRN PFSH Active Problems Active Problems: Problem Status Onset Code Encounter for colorectal cancer screening Z12.11, Z12.12 Change in bowel habits R19.4 Heart murmur, systolic Atypical chest pain R07.89 Chest pain R07.9 Encounter to establish care with new doctor Z76.89 Arthritis of knee 02/12/13 M17.10 Hyperlipidemia E78.5 Medical History Medical History (Updated 08/25/20 @ 10:28 by Ronni Banegas, LONG F[employer]ER [employer] ROLLER MACHINE) Arthritis of knee (02/12/13) Change in bowel habits Significant effort needed to evacuate; Hx polyps. Pt prefers not to start meds/fiber as actual stool does not seem problematic. Hyperlipidemia Surgical History Surgical History History of appendectomy History of cataract surgery (04/22/16) Right- 04/22/16 Left- 05/06/16 History of dilation and curettage History of tonsillectomy Hx of colonoscopy Tobacco Smoking/Tobacco Use Status: Former Tobacco Use Tobacco: How many years used: 10 Alcohol Alcohol Intake: former Substance Use Substance use: Never Substance use type: does not use Vital Signs and Lab Results Vital Signs Most Recent Vital Signs in EMR: Temp Pulse Resp BP Pulse Ox 36.5 C 74 16 138/64 99 08/25/20 10:14 08/25/20 10:14 08/25/20 10:14 08/25/20 10:14 08/25/20 10:14 Lab Results Blood Type / Crossmatch: No Data to Display Complete Blood Count: White Blood Count 8.27 k/cumm (4.4-10.8) 11/04/19 22:50 11/04/19 Red Blood Count 4.61 m/cumm (4.00-5.20) 11/04/19 22:50 11/04/19 Hemoglobin 12.7 g/dL (12.0-15.5) 11/04/19 22:50 11/04/19 Hematocrit 37.9 % (36.0-46.0) 11/04/19 22:50 11/04/19 Platelet Count 188 x1000/uL (130-400) 11/04/19 22:50 11/04/19 Complete Metabolic Panel: Sodium Level 139 mmol/L (136-145) 02/11/20 15:26 02/11/20 Potassium Level 3.8 mmol/L (3.5-5.1) 02/11/20 15:26 02/11/20 Chloride Level 105 mmol/L (98-107) 02/11/20 15:26 02/11/20 Carbon Dioxide Level 31.8 mmol/L (21.0-32.0) 02/11/20 15:26 02/11/20 Blood Urea Nitrogen 17 mg/dL (7-18) 02/11/20 15:26 02/11/20 Creatinine 0.58 mg/dL (0.55-1.02) 02/11/20 15:26 02/11/20 Magnesium Level 1.8 mg/dL (1.8-2.4) 11/04/19 22:50 11/04/19 Calcium Level 8.7 mg/dL (8.5-10.1) 02/11/20 15:26 02/11/20 Albumin 3.4 g/dL (3.4-5.0) 02/11/20 15:26 02/11/20 Glucose Level 104 mg/dL (74-106) 02/11/20 15:26 02/11/20 Hemoglobin A1c 6.0 % (4.5-6.2) 07/30/11 11:07 07/30/11 Liver Function Panel: Alanine Aminotransferase (ALT/SGPT) 16 U/L (14-59) 02/11/20 15:26 02/11/20 Aspartate Amino Transf (AST/SGOT) 12 U/L (15-37) L 02/11/20 15:26 02/11/20 Coagulation Panel: D-Dimer 636 ng/mlFEU (<500) H 11/04/19 22:50 11/04/19 Cardiac Panel: Troponin I < 0.05 ng/mL (<0.06) 11/05/19 11:22 11/05/19 Arterial Blood Gas: No Data to Display Venous Blood Gas: No Data to Display Pancreas Panel: No Data to Display Thyroid Panel: Thyroid Stimulating Hormone (TSH) 0.97 uIU/mL (0.36-3.74) 11/05/19 11:22 11/05/19 Infectious Disease: Coronavirus (COVID-19)(PCR) Negative (Negative) 08/22/20 08:39 08/22/20 Coronavirus 2019 Source Nasal/nares 08/22/20 08:39 08/22/20 Blood Cultures: No Data to Display Toxicology Panel: No Data to Display Panel: No Data to Display Imaging and Studies Imaging and Studies EKG Summary:: 11/05/19: Rate 86, intervals normal, sinus rhythm, right bundle branch block Echocardiogram Summary:: 11/05/19: Conclusio, Estimated ejection fraction is 60%. Aortic Valve is trileaflet and sclerotic without stenosis or regurgitation Mild mitral annular calcification. Trace mitral regurgitation Trace physiologic tricuspid regurgitation Anesthesia Assessment and Plan Anesthesia History Personal History: No History of Anesthesia Complications Family History: No Family History of Anesthesia Complications Exercise Tolerance Exercise Tolerance: Metabolic Equivalents>4 Pertinent Negatives Pertinent Negatives: No Symptoms of GERD Cardiac & Pulmonary Exam Cardiac Exam: Normal S1/S2 Heart Sounds Pulmonary Exam: Clear Bilateral Breath Sounds Airway Exam Known Difficult Airway: No Mallampati Class: 2 Mouth Opening: Normal (> 3cm) Thyromental Distance: Greater than 3 cm Neck Range of Motion: Full ROM Neck Circumference: Normal Teeth Condition: Normal Dentition ASA Classification ASA Score: ASA 2 ASA Emergency: No NPO Status NPO Status: NPO Clears >2 hours, Solids >8 hours Anesthesia Plan Anesthesia Technique: General Anesthesia Airway Planned: Natural Airway Monitors Used: Standard Monitors
[2020-08-25 10:14] VITALS: BP 138/64; PULSE 74; RESP 16; TEMP 36.5; O2SAT 99
[2020-08-25 10:22] VITALS: BMI 28.9
[2020-08-25] MEDS: Lactated Ringers 1,000 ML 80 ML IV (10:35)
--- NOTE | 2020-08-25 11:10 | BOWEL_PTH ---
PATIENT: Maria Fernanda Graham LOC: [facility] U#:[id number] AGE/SX: 85/F ROOM: RE08/25/[address]: Katie Vieyra MD : 1935 BED: DIS: 08/25/2020 SPEC #: [id number] RECD: 08/25/20 13:07 STATUS: DEBRA REGuillaume #: [id number] ISIS: 08/25/20 11:[address]: Katie Vieyra DEPT: Surgical Specimen RECD BY: Angie Anguiano ENTERED: 08/25/20 13:08 SP TYPE: Bowel OTHR DR: Indy Junior DO Tissues: 1 - BIOPSY BOWEL 2 - BIOPSY BOWEL Procedures: GROSS AND MICRO LEVEL 4 Comments: [id number]
--- NOTE | 2020-08-25 11:19 | W.ANESPOSTOP ---
Postoperative Evaluation Date, Time and Location Date Performed: 08/25/20 Time Performed: 11:19 Patient Location: Day Surgery Unit Vital Signs Most Recent Imported Vital Signs: Most Recent Vital Signs Temp Pulse Resp BP Pulse Ox 36.5 C 74 16 138/64 99 08/25/20 10:14 08/25/20 10:14 08/25/20 10:14 08/25/20 10:14 08/25/20 10:14 Most Recent Manually Entered Vital Signs: Adult Blood Pressure: 85/42 Heart Rate: 60 Respirations: 16 Oxygen Saturation (%): 98 Temperature (C): 36.3 C Pain Score (0-10 Scale): 0 Pain Score Most Recent Pain Score: Most Recent Pain Score Pain Level 0 08/25/20 10:14 Assessment Mental Status: Arousable with meaningful communication Airway and Respiratory Function: Patent airway with normal (patient baseline) respiratory exam Cardiovascular Function: Hemodynamically Stable Hydration Status: Adequately Hydrated Nausea & Vomiting: No Nausea or Vomiting Pain: Pt. Denies Any Pain Peripheral Nerve Block: Patient did not receive a nerve block
[2020-08-25 11:20] VITALS: BP 85/42; PULSE 60; RESP 16; TEMPC 36.3; O2SAT 98
[2020-08-25 11:45] VITALS: BP 106/83; PULSE 53; RESP 16; TEMP 36.3; O2SAT 96
== END 2020-08-25 12:29 | disposition home or self-care (01) ==
PROVIDERS: PCP Student in an Organized Health Care Education/Training Program; Visit Provider Surgery
PROC: 0DJD8ZZ Inspection of Lower Intestinal Tract, Via Natural or Artificial Opening Endoscopic (ICD-10-PCS; CPT 45378; principal; 2020-08-25 11:00)
DX: Z12.11 Encounter for screening for malignant neoplasm of colon (principal); D12.4 Benign neoplasm of descending colon; Z86.010 Personal history of colon polyps; Z80.0 Family history of malignant neoplasm of digestive organs; K57.30 Diverticulosis of large intestine without perforation or abscess without bleeding; K64.0 First degree hemorrhoids
CPT/HCPCS: 45380; 88305

== ENCOUNTER 2020-11-11 02:00 | Outpatient (CLI) | payer MEDICARE, SELFPAY ==
--- NOTE | 2020-11-11 07:45 | DI.DEXA_ITS ---
Exam(s) XR DEXA BONE DENSITY W/WO KETAN EXAM: XR DEXA BONE DENSITY W/WO KETAN CLINICAL HISTORY: SCREENING FOR OSTEOPOROSIS IN POSTMENOPAUSAL WOMAN,Z78.0 TECHNIQUE: coRank C densitometer COMPARISON: No exams were available for comparison FINDINGS: Lateral view of the thoracic and lumbar spine shows no evidence of compression fractures. Bone mineral density measurements of the lumbar spine correspond to a total T-score of 0.2, in the n ormal range. There are degenerative disc changes visible which could elevate the bone mineral densit y measurements. Bone mineral density measurements of the left hip correspond to a total T-score of -2.9, in the osteo porotic range.. The femoral neck T-score is -3.4 . The left forearm bone mineral density measurements correspond to a T-score of the distal 3rd of -2.8 , consistent with osteoporosis.. IMPRESSION: Normal bone mineral density of the lumbar spine. 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
== END 2020-11-11 02:20 ==
PROVIDERS: PCP Student in an Organized Health Care Education/Training Program; Visit Provider Student in an Organized Health Care Education/Training Program
DX: M81.0 Age-related osteoporosis without current pathological fracture; Z78.0 Asymptomatic menopausal state
CPT/HCPCS: 77080

== ENCOUNTER 2021-03-03 01:07 | Outpatient (CLI) | payer MEDICARE, SELFPAY ==
--- NOTE | 2021-03-03 11:15 | DI.MAMMO_ITS ---
Exam(s) MAMMO SCREENING EXAM: MAMMO SCREENING CLINICAL HISTORY: screening,Z12.39 TECHNIQUE: Bilateral full field digital CC and MLO mammographic images were obtained with 3D tomosyn thesis and utilizing computer aided detection (CAD). COMPARISON: Available for comparison. FINDINGS: Masses/Architectural Distortion: None seen. Microcalcifications: No suspicious pleomorphic-type are seen. Skin Thickening/Nipple Retraction: None. IMPRESSION: 1. No significant interval change with no specific features of malignancy noted. 2. Unless there is more urgent need, screening mammography is recommended, as per [place] [employer] guidelines. BI-RADS Category 1 - Negative Breast Density - Category A - Almost entirely fatty Breast density category C or D implies that the patient has dense breast tissue. Dense breast tissue is very common and is not abnormal but dense breast tissue can make it harder to find cancer on a ma mmogram. Also, dense breast tissue may increase their breast cancer risk. This information about the result of the mammogram report was provided to the patient to raise their awareness. Use this report when you speak with the patient about their risks for breast cancer, which includes their family hist ory. At that time, you may recommend for more screening tests (Ultrasound or MRI) as they might be us eful based on their risk. A negative radiographic report should not delay biopsy if a dominant or clinically suspicious mass is present. Up to ten percent of cancers are not identified on mammography. A negative report may reinforce clinical impression. Adenosis and dense breasts may obscure an underlying neoplasm. False positive reports average 6 to 10%. Patient will receive a letter notifying them of these results.
== END 2021-03-03 01:27 ==
PROVIDERS: PCP Student in an Organized Health Care Education/Training Program; Visit Provider Obstetrics & Gynecology
DX: Z12.31 Encounter for screening mammogram for malignant neoplasm of breast (principal)
CPT/HCPCS: 77063; 77067

== ENCOUNTER 2021-05-27 03:00 | Outpatient (RCR) | payer MEDICARE, SELFPAY ==
[2021-05-27] MEDS: ZOLEDRONIC ACID/MANNITOL/WATER 5 MG/100 ML BTL 300 MG IVPB (09:04)
[2021-05-27] MEDS: Normal Saline Flush 10 ML SYR IVP (09:04)
== END 2021-06-22 23:59 | disposition home or self-care (01) ==
LOC: INF 03:00
PROVIDERS: PCP Student in an Organized Health Care Education/Training Program; Visit Provider Student in an Organized Health Care Education/Training Program
DX: M81.0 Age-related osteoporosis without current pathological fracture (principal)
CPT/HCPCS: 96365; J3489

== ENCOUNTER 2022-01-08 01:50 | Outpatient (CLI) | payer MEDICARE, SELFPAY ==
--- OUTSIDE RECORDS SUMMARY | 2022-01-08 02:03 | XMS_ITS | Encounter Summary ---
:1935 Author Organization [facility] Address [address] [place] [address] Care Team Providers Name Role Phone Unavailable Primary Care Provider Unavailable Encounter Details Date Type Department Care Team Description 11/15/2005 Results Only [facility] - Indy Paulino, TUBE DRAWER conversion [address] [place] [address] Social History Tobacco Use Types Packs/Day Years Used Date Never Assessed Sex Assigned at Date Recorded Not on file documented as of this encounter Plan of Treatment Not on filedocumented as of this encounter Procedures Procedure Name Priority Date/Time Associated Diagnosis Comme nts CYTOPATHOLOGY Routine 11/15/2005 0:00 EDT Results for this procedure are i n the results section . documented in this encounter Results CYTOPATHOLOGY (11/15/2005 0:00 EDT) Pathology Report: CYTOPATHOLOGY REPORT [facility] Reports generated via electronic interface contain rena ginal data; however they are lacking the format of the original re port. Caution should be taken when reading/interpreting unfo rmatted reports. Name: ? MEERA JAVIER ? Accession #: ? [id number] : ? 1935 (Age: 70) ??F ?Collect Date: ? 10/24 Location: ? [facility] ? Receive Date : ? 11/17/2005 Provider: ?INDY DE OLIVEIRA TUBE DRAWER Copy to: ? Specimen/Source: ? ThinPrep Pap Test, Cervix/Endocervix, processed on Meta ThinPrep Imaging System, with manual evaluation Last Menstrual Period: ? 19 yrs ago Other: ? HPVA - HPV testing requested if ASC-US on the current ThinPrep Pap test. ? SPECIMEN ADEQUACY ? Satisfactory for Evaluation - transformation zone component present GENERAL CATEGORIZATION ? Negative for Intraepithelial Lesion or Malignan cy ? Document reviewed and electronically signed by: ? VERNELL Segura(ASCP) ? Report Date: ??11/19/2005 12:18 End of Report Specimen Performing Organization Address City/State/ZIP Code Phon e Number [facility] [address] [place] [address] SERVICES [facility] [address] [place] [address] documented in this encounter Visit Diagnoses Not on filedocumented in this encounter
--- OUTSIDE RECORDS SUMMARY | 2022-01-08 02:03 | XMS_ITS | Clinical Summary ---
:1935 Author Organization [facility] Address [address] [place] [address] Care Team Providers Name Role Phone Manish Candelario MD Primary Care Provider Social History Tobacco Use Types Packs/Day Years Used Date Never Assessed Sex Assigned at Date Recorded Not on file Plan of Treatment Health Maintenance Due Date Last Done Comments Fall Risk Screening 2001 Insurance Payer Benefit Plan Subscriber ID Effective Phone Address Typ e / Group Dates MEDICARE MEDICARE A/B [id number] 2001-Pres [address] edicare GL ent [id number] [facility] [address] [facility] [id number] 2020-Pres [phone] [address] Comm ercial [facility] ent [phone] [place] [address] Maria Fernanda Graham Personal/Famil Self 1935 [address] [place], ([place]) [place] [address] Maria Fernanda Graham Personal/Famil Self 1935 [address]) [address] [place] ([place]) [place] [address] Maria Fernanda Graham Personal/Famil Self 1935 [address]) [address] [place], ([place]) [place] [address] Maria Fernanda Graham Personal/Famil Self 1935 [address] ([address]) [address] [facility] [place], ([place]) [place] [address] Care Teams Paper Tube Machine Operator Relationship Specialty Start Date End Date Manish Candelario MD PCP - General 07/19/[address] [place] [address] [address] [place], [place] [id number]
--- OUTSIDE RECORDS SUMMARY | 2022-01-08 02:03 | XMS_ITS | Encounter Summary ---
:[address] [facility] Address [address] [place] [address] Care Team Providers Name Role Phone Manish Candelario MD Primary Care Provider Encounter Details Date Type Department Care Team Description 11/05/2019 Lab Requisition [facility] Outr Resulting Lab, Pathology & Laboratory Provider [facility] [address] [place] [address] Social History Tobacco Use Types Packs/Day Years Used Date Never Assessed Sex Assigned at Date Recorded Not on file documented as of this encounter Plan of Treatment Not on filedocumented as of this encounter Procedures Procedure Name Priority Date/Time Associated Diagnosis Comme nts COVID-19 TEST [facility] Today 11/05/2019 0:49 EDT LAB PCR COVID-19 TESTING Routine 11/05/2019 0:49 EDT Resu lts for this procedure are i n the results section. documented in this encounter Results COVID-19 TEST [facility] PCR (11/05/2019 0:49 EDT) Specimen Swab - Entire nasopharynx (body structur e) Performing Organization Address City/State/ZIP Code Phon e Number [facility] [address] [place] [address] SERVICES COVID-19 TESTING (11/05/2019 0:49 EDT) COVID-19 rt-PCR Negative Negative [facility] Result Comment: [facility] This test has not been FDA c leared or approved. This test has been authorized by FDA under an EUA for use by authorized laboratories. This test has been authorized only for detection of nucleic acid fro SERVICES m 2019-nCoV, not for any oth er viruses or pathogens. This test is only authorized for the duration of the declaration that circumstances exist justifying the authorization of emergency use of in vitro d iagnostic tests for detectio n and/or diagnosis of 2019-nCoV under section 564(b)(1) of Act, 21 U.S.C ?? 360bbb-3(b) (1), unless the authorization is terminated or revoked sooner. Negative results do not prec lude 2019-nCoV infection and should not be used as the sole basis for treatment or other patient management decisions. Negative results must be combined with clinical observa tions, patient history, and epidemiological informatio n. Performed on the [employer] Fusion instrument Performing Lab [place] [facility] SERVICES Specimen Swab Performing Organization Address City/State/ZIP Code Phon e Number [facility] [address] [place] [address] SERVICES documented in this encounter Visit Diagnoses Not on filedocumented in this encounter Additional Health Concerns Infection Onset Date Last Indicated Resolved Time R/O COVID-19 11/05/2019 11/05/2019 11/10/2019 22:17 EDT documented as of this encounter Care Teams [employer] Lieutenant Relationship Specialty Start Date End Date Manish Candelario MD PCP - General 07/19/[address] [place] [address] [address] [place], [place] [address] documented as of this encounter
--- OUTSIDE RECORDS SUMMARY | 2022-01-08 02:03 | XMS_ITS | Encounter Summary ---
:1935 Author Organization [facility] Address [address] [place] [address] Care Team Providers Name Role Phone Unavailable Primary Care Provider Unavailable Encounter Details Date Type Department Care Team Description 09/09/2003 Results Only [facility] - [place] Paulino, CERTIFIED CODER conversion [address] [place] [address] Social History Tobacco Use Types Packs/Day Years Used Date Never Assessed Sex Assigned at Date Recorded Not on file documented as of this encounter Plan of Treatment Not on filedocumented as of this encounter Procedures Procedure Name Priority Date/Time Associated Diagnosis Comme nts CYTOPATHOLOGY Routine 09/09/2003 0:00 EDT Results for this procedure are i n the results section . documented in this encounter Results CYTOPATHOLOGY (09/09/2003 0:00 EDT) Pathology Report: CYTOPATHOLOGY REPORT [facility] Reports generated via electronic interface contain rena ginal data; however they are lacking the format of the original re port. Caution should be taken when reading/interpreting unfo rmatted reports. Name: ? MEERA JAVIER ? Accession #: ? [id number] : ? 1935 (Age: 68) ??F ?Collect Date: ? 08/23 Location: ? [facility] ? Receive Date : ? 09/11/2003 Provider: ?INDY DE OLIVEIRA CERTIFIED CODER Copy to: ? Specimen/Source: ?ThinPrep Pap Test, Cervix/ Endocervix Last Menstrual Period: ? 17 yrs ago ? SPECIMEN ADEQUACY ? Satisfactory for Evaluation - transformation zone component present GENERAL CATEGORIZATION ? Negative for Intraepithelial Lesion or Malignan cy ? Document reviewed and electronically signed by: ? VERNELL Dodson(ASCP) ? Report Date: ??09/16/2003 16:15 End of Report Specimen Performing Organization Address City/State/ZIP Code Phon e Number [facility] [address] [place] [address] SERVICES [facility] [address] [place] [address] documented in this encounter Visit Diagnoses Not on filedocumented in this encounter
--- OUTSIDE RECORDS SUMMARY | 2022-01-08 02:03 | XMS_ITS | Encounter Summary ---
:1935 Author Organization [facility] Address [address] [place] [address] Care Team Providers Name Role Phone Unavailable Primary Care Provider Unavailable Encounter Details Date Type Department Care Team Description 07/17/2001 Results Only [facility] - Indy Paulino, HAND HARDENER conversion [address] [place] [address] Social History Tobacco Use Types Packs/Day Years Used Date Never Assessed Sex Assigned at Date Recorded Not on file documented as of this encounter Plan of Treatment Not on filedocumented as of this encounter Procedures Procedure Name Priority Date/Time Associated Diagnosis Comme nts CYTOPATHOLOGY Routine 07/17/2001 0:00 EST Results for this procedure are i n the results section . documented in this encounter Results CYTOPATHOLOGY (07/17/2001 0:00 EST) Pathology Report: CYTOPATHOLOGY REPORT [facility] Reports generated via electronic interface contain rena ginal data; however they are lacking the format of the original re port. Caution should be taken when reading/interpreting unfo rmatted reports. Name: ? MEERA JAVIER ? Accession #: ? [id number] : ? 1935 (Age: 66) ??F ?Collect Date: ? 06/24 Location: ? [facility] ? Receive Date : ? 07/19/2001 Provider: ?INDY DE OLIVEIRA HAND HARDENER Copy to: ? Specimen/Source: ?ThinPrep Pap Test, Cervix/ Endocervix Last Menstrual Period: ? 15 years ago ? SPECIMEN ADEQUACY ? Satisfactory for Evaluation - transformation zone component present GENERAL CATEGORIZATION ? Negative for Intraepithelial Lesion or Malignan cy ? Document reviewed and electronically signed by: ? VERNELL Luz(ASCP) ? Report Date: ??07/21/2001 13:01 End of Report Specimen Performing Organization Address City/State/ZIP Code Phon e Number [facility] [address] [place] [address] SERVICES [facility] [address] [place] [address] documented in this encounter Visit Diagnoses Not on filedocumented in this encounter
--- OUTSIDE RECORDS SUMMARY | 2022-01-08 02:03 | XMS_ITS | Encounter Summary ---
:1935 Author Organization [facility] Address [address] [place] [address] Care Team Providers Name Role Phone Unavailable Primary Care Provider Unavailable Encounter Details Date Type Department Care Team Description 01/10/2008 Before PRISM Converted [facility] - Martin Holloway, Visit (Maple) Maple conversion LABORER BITUMINOUS PAVING [address] [place] [address] Social History Tobacco Use Types Packs/Day Years Used Date Never Assessed Sex Assigned at Date Recorded Not on file documented as of this encounter Plan of Treatment Not on filedocumented as of this encounter Procedures Procedure Name Priority Date/Time Associated Diagnosis Comme [facility] CYTOPATHOLOGY Routine 01/10/2008 0:00 EDT Results for this procedure are i n the results section . documented in this encounter Results CYTOPATHOLOGY (01/10/2008 0:00 EDT) Pathology Report: CYTOPATHOLOGY REPORT ? [facility] ? LAB Reports generated via [facility] interface contain original data; ? however they are lacking the format of the original report. ? Caution should be taken when reading/interpreting unformatted reports. ? Name: ? CONCEPCIONMEERA ? Accession #: ? [id number] ? : ? 1935 (Age: 72) ??F ?Collect Date: ? 01/10/2008 ? Location: ? [facility] ? Receive Date: ? 01/11/2008 ? Provider: ?PEPPER M ELAINE MCGOWAN LABORER BITUMINOUS PAVING ? Copy to: ? Specimen/Source: ? ThinPrep Pap Test, Cervix/Endocervix, processed on [employer] ThinPrep Imaging System, wit h manual evaluation ? Last Menstrual Period: ? 21 yrs ago ? SPECIMEN ADEQUACY ? Satisfactory for Eval uation ? - transformation zone compon ent absent ? GENERAL CATEGORIZATION ? Negative for Intraepi thelial Lesion or Malignancy ? Document reviewed and electr onically signed by: ? Nolan Willis CT( CP) ? Report Date: ??09/19/ 2008 15:11 ? End of Report ? Specimen Performing Organization Address City/State/ZIP Code Phon e Number [facility] [address] [place] [address] SERVICES [facility] [address] [place] [address] documented in this encounter Visit Diagnoses Not on filedocumented in this encounter
--- OUTSIDE RECORDS SUMMARY | 2022-01-08 02:03 | XMS_ITS | Encounter Summary ---
:[address] [facility] Address [address] [place] [id number] Care Team Providers Name Role Phone Unavailable Primary Care Provider Unavailable Encounter Details Date Type Department Care Team Description 02/02/2010 Results Only [facility] [place], CHRISTOPHE Laboratory Services - [address] [address] Social History Tobacco Use Types Packs/Day Years Used Date Never Assessed Sex Assigned at Date Recorded Not on file documented as of this encounter Plan of Treatment Not on filedocumented as of this encounter Procedures Procedure Name Priority Date/Time Associated Diagnosis Comme nts CYTOPATHOLOGY Routine 02/02/2010 0:00 EDT Result s for this procedure are i n the results section . documented in this encounter Results CYTOPATHOLOGY (02/02/2010 0:00 EDT) Pathology Report: CYTOPATHOLOGY REPORT ? [facility] ? LAB Reports generated via electr [employer] interface contain original data; ? however they are lacking the format of the original report. ? Caution should be taken when reading/interpreting unformatted reports. ? Name: ? MEERA JAVIER ? Accession #: ? [id number] ? : ? 1935 (Age: 74) ??F ?Collect Date: ? 02/02/2010 ? Location: ? [facility] ? Receive Date: ? 02/03/2010 ? Provider: ?INDY MCGOWAN KNIFEMAN ? Copy to: ? Specimen/Source: ? Pap Test, Cervix/Endocervix, ThinPrep Imaging System ? with manual evaluation ? Last Menstrual Period: ? 20 + yrs ago ? Other: ? HPVA - HPV testing requested if ASC-US on the current ThinPrep Pap test. ? SPECIMEN ADEQUACY ? Satisfactory for Eval uation ? - transformation zone compon ent present ? GENERAL CATEGORIZATION ? Negative for Intraepi thelial Lesion or Malignancy ? Document reviewed and electr onically signed by: ? Nolan Willis, CT( CP) ? Report Date: ??10/14/ 2010 16:18 ? End of Report ? Specimen Performing Organization Address City/State/ZIP Code Phon e Number [facility] [address] [place] [address] SERVICES [facility] [address] [place] [address] documented in this encounter Visit Diagnoses Not on filedocumented in this encounter
--- OUTSIDE RECORDS SUMMARY | 2022-01-08 02:03 | XMS_ITS | Encounter Summary ---
:1935 Author Organization [facility] Address [address] [place] [address] Care Team Providers Name Role Phone Unavailable Primary Care Provider Unavailable Encounter Details Date Type Department Care Team Description 07/01/2000 Results Only [facility] [place] Paulino, BINDERY LEADPERSON conversion [address] [place] [address] Social History Tobacco Use Types Packs/Day Years Used Date Never Assessed Sex Assigned at Date Recorded Not on file documented as of this encounter Plan of Treatment Not on filedocumented as of this encounter Procedures Procedure Name Priority Date/Time Associated Diagnosis Comme nts CYTOPATHOLOGY Routine 07/01/2000 0:00 EST Results for this procedure are i n the results section . documented in this encounter Results CYTOPATHOLOGY (07/01/2000 0:00 EST) Pathology Report: CYTOPATHOLOGY REPORT [facility] Reports generated via electronic interface contain rena ginal data; however they are lacking the format of the original re port. Caution should be taken when reading/interpreting unfo rmatted reports. Name: ? MEERA JAVIER ? Accession #: ? [id number] : ? 1935 (Age: 65) ??F ?Collect Date: ? 12/2000 Location: ? [facility] ? Receive Date : ? 07/05/2000 Provider: ?INDY DE OLIVEIRA BINDERY LEADPERSON Copy to: ? Specimen/Source: ?ThinPrep Pap Test, Cervix/ Endocervix Last Menstrual Period: ? Many years ago. ? SPECIMEN ADEQUACY ? Satisfactory for evaluation. GENERAL CATEGORIZATION ? Within Normal Limits ? Document reviewed and electronically signed by: ? VERNELL Amaya(ASCP)(IAC) ? Report Date: ??07/05/2000 15:08 End of Report Specimen Performing Organization Address City/State/ZIP Code Phon e Number [facility] [address] [place] [address] SERVICES [facility] [address] [place] [address] documented in this encounter Visit Diagnoses Not on filedocumented in this encounter
--- OUTSIDE RECORDS SUMMARY | 2022-01-08 02:03 | XMS_ITS | Encounter Summary ---
:1935 Author Organization [facility] Address [address] [place] [address] Care Team Providers Name Role Phone Unavailable Primary Care Provider Unavailable Encounter Details Date Type Department Care Team Description 07/18/[address] [facility] - [place] Paulino, REPTILE FARMER conversion [address] [place] [address] Social History Tobacco Use Types Packs/Day Years Used Date Never Assessed Sex Assigned at Date Recorded Not on file documented as of this encounter Plan of Treatment Not on filedocumented as of this encounter Procedures Procedure Name Priority Date/Time Associated Diagnosis Comme nts CYTOPATHOLOGY Routine 07/18/2002 0:00 EST Results for this procedure are i n the results section . documented in this encounter Results CYTOPATHOLOGY (07/18/2002 0:00 EST) Pathology Report: CYTOPATHOLOGY REPORT [facility] Reports generated via electronic interface contain rena ginal data; however they are lacking the format of the original re port. Caution should be taken when reading/interpreting unfo rmatted reports. Name: ? MEERA JAVIER ? Accession #: ? [id number] : ? 1935 (Age: 67) ??F ?Collect Date: ? 06/24 Location: ? [facility] ? Receive Date : ? 07/20/2002 Provider: ?INDY DE OLIVEIRA REPTILE FARMER Copy to: ? Specimen/Source: ?ThinPrep Pap Test, Cervix/ Endocervix Last Menstrual Period: ? 16 yrs ago ? SPECIMEN ADEQUACY ? Satisfactory for Evaluation - transformation zone component present GENERAL CATEGORIZATION ? Negative for Intraepithelial Lesion or Malignan cy ? Document reviewed and electronically signed by: ? VERNELL Eden(ASCP) ? Report Date: ??07/24/2002 10:39 End of Report Specimen Performing Organization Address City/State/ZIP Code Phon e Number [facility] [address] [place] [address] SERVICES [facility] [address] [place] [address] documented in this encounter Visit Diagnoses Not on filedocumented in this encounter
--- OUTSIDE RECORDS SUMMARY | 2022-01-08 02:03 | XMS_ITS | Encounter Summary ---
:1935 Author Organization [facility] Address [address] [place] [address] Care Team Providers Name Role Phone Manish Candelario MD Primary Care Provider Encounter Details Date Type Department Care Team Description 08/25/2020 Lab Requisition [facility] Leatha Vieyra for Pathology & MD Anastasiya screening for Laboratory Medicine [address] malignant neoplasm - [place], [place] of colon [address] [facility] [address] [place], [place] [address] Social History Tobacco Use Types Packs/Day Years Used Date Never Assessed Sex Assigned at Date Recorded Not on file documented as of this encounter Plan of Treatment Not on filedocumented as of this encounter Procedures Procedure Name Priority Date/Time Associated Diagnosis Comme nts SURGICAL PATHOLOGY Today 08/25/2020 11:10 Encounter for Resu lts for this EDT screening for procedure are in malignant neoplasm the resul ts of colon section. documented in this encounter Results SURGICAL PATHOLOGY (08/25/2020 11:10 EDT) Final Diagnosis A. COLON, ASCENDING, POLYP, BIOPSY: [facility] - Benign colonic mucosa with lymphoid aggregate and la layton propria. [facility] B. COLON, DESCENDING, POLYP, BIOPSY: SERV ICES - Tubular adenoma Attestation By the signature [facility] Electronica lly below, the attending CENTER signed by Aris physician certifies LABORATORY Elizabeth Jeffries MD on that they have 1) SERVICES 08/27/2020 a t 1024 personally conducted a gross and/or microscopic examination of the described specimen(s), and/or personally interpreted the results of laboratory testing of the described specimen(s), and 2) personally rendered or confirmed the above diagnosis. Clinical History Colon screening [facility] Gross Description A. [facility] Received in formalin adrian d with proper patient identification (initials W, J) and ascending colon polyp is a de la torre irregular tissue, 0.4 x 0.2 x 0.1 cm. Entirely submitted in A1. [facility] B. SERVICES Received in formalin adrian d with proper patient identification (initials W, J) and descending polyp is a de la torre irregular tissue, 0.4 x 0.2 x 0.1 cm. Entirely submitted in B1. KOKI MALLOY([facility]) 08/26/2020 8:05 Performing Lab [facility] Scanned Images [facility] Specimen Tissue - Descending colon structure (bod y structure) Tissue specimen (specimen) - Descending colon structure (body structure) Performing Organization Address City/State/ZIP Code Phon e Number [facility] [address] [place] [address] SERVICES documented in this encounter Visit Diagnoses Diagnosis Encounter for screening for malignant ne oplasm of colon Special screening for malignant neoplasm s, colon documented in this encounter Care Teams Title Coordinator Relationship Specialty Start Date End Date Manish Candelario MD PCP - General 07/19/[address] [place] [address] [address] [place], [place] [address] documented as of this encounter
--- OUTSIDE RECORDS SUMMARY | 2022-01-08 02:03 | XMS_ITS | Encounter Summary ---
:[address] [facility] Address [address] [place] [address] Care Team Providers Name Role Phone Unavailable Primary Care Provider Unavailable Encounter Details Date Type Department Care Team Description 04/06/2006 Results Only [facility] - Hieu Perez MD conversion [address] [place] [phone] Social History Tobacco Use Types Packs/Day Years Used Date Never Assessed Sex Assigned at Date Recorded Not on file documented as of this encounter Plan of Treatment Not on filedocumented as of this encounter Procedures Procedure Name Priority Date/Time Associated Diagnosis Comme [facility] SURGICAL PATHOLOGY Routine 04/06/2006 0:00 EST Re sults for this procedure are i n the results section. documented in this encounter Results SURGICAL PATHOLOGY (04/06/2006 0:00 EST) Pathology Report: SURGICAL PATHOLOGY REPORT [facility] Reports generated via electronic interface contain rena ginal data; LAB however they are lacking the format of the original re port. Caution should be taken when reading/interpreting unfo rmatted reports. Name: ? MEERA JAVIER ? Accession #: ? [id number] ? : ? 1935 (Age: 70) ??F ? Collect Date: ? 04/06/2006 ? Location: ? [facility] ? Receive Date: ? 006 ? Provider: MARK BURRIS MD Copy to: DANETTE RODARTE MD ? Final Pathologic Diagnosis: ? Colon, ascending, biopsy: - Melanosis coli. ??See comment. Comment: ? There is very little submucosa present on this biopsy. ??No submucosal lipoma is seen. ??Deeper sections have been exam ined. ??(Dr. Bennie Venegas)/[facility] Document reviewed and electronically signed by: Radha Perez MD Report ??Date: 04/09/2006 11:39 By the signature above, the attending physician certif ies that he/she has personally conducted a gross and/or microscopic examin ation of the described specimens and rendered or confirmed the above diagnosi s. Specimen(s) Received: ? Bx ascending colon Clinical History: ? Personal hx colon polyp; ? submucosal lipoma Gross Description: ? Received in Hollande' s fixative labelled [place] and bx ascending colon is an irregular 0.4 x 0.2 x 0.1 cm portion of de la torre-pink soft tissue. ??The specimen is submitted intact in one cassette. ??(Yousif Chatman-TJ)/[facility] End of Report Specimen Performing Organization Address City/State/ZIP Code Phon e Number [facility] [address] [place] [address] SERVICES [facility] [address] [place] [address] documented in this encounter Visit Diagnoses Not on filedocumented in this encounter
[2022-01-08 07:43] LABS: HGB 14.8 g/dL (11.2-15.7)
[2022-01-08 08:22] LABS: ALT 24 U/L (14-59); AST 17 U/L (15-37); Albumin 3.4 g/dL (3.4-5.0); Alkaline Phosphatase 50 U/L (46-116); Anion Gap 8.1 mmol/L (3-11); BUN 10 mg/dL (7-18); Bilirubin, Total 0.5 mg/dL (0.2-1.0); CO2 28.9 mmol/L (21.0-32.0); CREATININE 0.6 mg/dL (0.55-1.02); Calcium 8.9 mg/dL (8.5-10.1); Calculated LDL 148 mg/dL (<100); Chloride 104 mmol/L (98-107); Cholesterol 246 mg/dL (<200); Estimated GFR 87.91 (mL/min/1.73m2); Glucose 88 mg/dL (74-106); HDL Cholesterol 89 mg/dL (40-60); Sodium 141 mmol/L (136-145); TSH (W/Ref FT4) 1.84 uIU/mL (0.36-3.74); Total Protein 7.4 g/dL (6.4-8.2); Triglyceride 46 mg/dL (<150)
== END 2022-01-08 01:51 | disposition home or self-care (01) ==
LOC: LBO 01:51
PROVIDERS: PCP Student in an Organized Health Care Education/Training Program; Visit Provider Student in an Organized Health Care Education/Training Program
DX: R77.0 Abnormality of albumin (principal); Z79.1 Long term (current) use of non-steroidal anti-inflammatories (NSAID); R07.9 Chest pain, unspecified; R53.83 Other fatigue
CPT/HCPCS: 36415; 80053; 80061; 84443; 85018

== ENCOUNTER 2022-01-15 10:56 | Outpatient (CLI) | payer MEDICARE, SELFPAY ==
--- NOTE | 2022-01-15 10:49 | DI.RAD_ITS ---
Exam(s) XR KNEE LT 3V AP,LAT,HUGH EXAM: XR KNEE LT 3V AP,LAT,HUGH CLINICAL HISTORY: pain. TECHNIQUE: 2D digital imaging was performed. Three views. COMPARISON: CR XR KNEE RT 3V AP,LAT,HUGH from 01/15/2022 FINDINGS: BONES: No acute fracture is present. No bony destructive lesion is seen. There is severe narrowing of the lateral femoral tibial joint space, with a tmpm-mz-syys appearance. There is periarticular sp urring and compensatory widening of the medial femoral tibial joint space. Spurring is also noted at the articular aspect of the patella. There may be a small joint effusion SOFT TISSUE: Normal. 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 DATA REPOSITORY: RADIATION DOSE DELIVERED:
--- NOTE | 2022-01-15 10:49 | DI.RAD_ITS ---
Exam(s) XR KNEE RT 3V AP,LAT,HUGH EXAM: XR KNEE RT 3V AP,LAT,HUGH CLINICAL HISTORY: pain. TECHNIQUE: 2D digital imaging was performed. Three views. COMPARISON: CR LEFT KNEE 3 VIEW COMPLETE from 10/26/2011 FINDINGS: BONES: No acute fracture is present. No bony destructive lesion is seen. JOINTS: Severe narrowing of the lateral femoral tibial joint space with periarticular spurring and sc lerosis. Spurring is also seen at the patellofemoral joint.. No joint effusion is seen. SOFT TISSUE: Posteromedial loose body would be within a Ramires's cyst. IMPRESSION: severe degenerative changes of the lateral femoral tibial joint. DATA REPOSITORY: RADIATION DOSE DELIVERED:
== END 2022-01-15 10:57 | disposition home or self-care (01) ==
LOC: DIORS 10:57
PROVIDERS: PCP Student in an Organized Health Care Education/Training Program; Referring Provider Student in an Organized Health Care Education/Training Program; Visit Provider Physician Assistant Surgical
DX: M17.12 Unilateral primary osteoarthritis, left knee; M17.11 Unilateral primary osteoarthritis, right knee
CPT/HCPCS: 73562; 99214

== ENCOUNTER 2022-02-15 02:35 | Outpatient (CLI) | payer MEDICARE, SELFPAY ==
[2022-02-15 15:13] LABS: HCT 44.7 % (36.0-46.0); HGB 15.3 g/dL (11.2-15.7); MCH 31.4 pg (27.0-33.0); MCHC 34.2 % (32.0-36.0); MCV 92 fL (80-95); MPV 9.5 fL (8.0-11.0); Platelet Count 208 10^3/uL (130-400); RBC 4.88 10^6/uL (3.93-5.22); RDW-SD 40.9 fL
[2022-02-15 16:04] LABS: Anion Gap 9.3 mmol/L (3-11); BUN 18 mg/dL (7-18); CO2 26.7 mmol/L (21.0-32.0); CREATININE 0.6 mg/dL (0.55-1.02); Calcium 9.5 mg/dL (8.5-10.1); Chloride 104 mmol/L (98-107); Estimated GFR 87.91 (mL/min/1.73m2); Glucose 113 mg/dL (74-106); Potassium 4.2 mmol/L (3.5-5.1); Sodium 140 mmol/L (136-145)
== END 2022-02-15 02:36 | disposition home or self-care (01) ==
LOC: LBO 02:35
PROVIDERS: PCP Student in an Organized Health Care Education/Training Program; Visit Provider Student in an Organized Health Care Education/Training Program
DX: M17.12 Unilateral primary osteoarthritis, left knee (principal); Z01.818 Encounter for other preprocedural examination
CPT/HCPCS: 36415; 80048; 85027; 73560; 77073

== ENCOUNTER 2022-02-15 14:49 | Outpatient (CLI) | payer MEDICARE, SELFPAY ==
--- NOTE | 2022-02-15 14:15 | DI.RAD_ITS ---
Exam(s) XR KNEE LT 1V XR STANDING ALIGNMENT EXAM: XR STANDING ALIGNMENT CLINICAL HISTORY: pre op mag marker. TECHNIQUE: 2D digital imaging was performed. Standing AP views were performed from the pelvis throu gh the ankles. Lateral view left knee. COMPARISON: CR XR KNEE RT 3V AP,LAT,HUGH from 01/15/2022 CR XR KNEE LT 3V AP,LAT,HUGH from 01/15/2022 CR XR KNEE LT 1V from 02/15/2022 FINDINGS: BONES: No acute fracture is present. No bony destructive lesion is seen. Leg length discrepancy: No significant leg length discrepancy. JOINTS: Knees: Severe narrowing of the lateral femoral tibial joint space causing valgus angulation.P eriarticular spurring. Widening of the medial femoral tibial joint. Spurring at the patellofemoral joint. Moderate narrowing of the lateral femoral tibial joint of the right knee with mild valgus ang ulation The ankle joints are unremarkable. The hip joints show mild narrowing and acetabular spurring.. SOFT TISSUE: Calcified uterine fibroid. IMPRESSION: Severe degenerative changes left knee. No significant leg length discrepancy. DATA REPOSITORY: RADIATION DOSE DELIVERED:
== END 2022-02-15 14:50 | disposition home or self-care (01) ==
LOC: DIORS 14:49
PROVIDERS: PCP Student in an Organized Health Care Education/Training Program; Referring Provider Student in an Organized Health Care Education/Training Program; Visit Provider Physician Assistant Surgical
DX: M17.12 Unilateral primary osteoarthritis, left knee (principal); Z01.818 Encounter for other preprocedural examination
CPT/HCPCS: 73560; 77073

== ENCOUNTER → 2022-02-23 03:00 | Outpatient (CLI) | payer MEDICARE, SELFPAY ==
--- NOTE | 2022-02-23 06:45 | DI.MAMMO_ITS ---
Exam(s) MAMMO SCREENING EXAM: MAMMO SCREENING CLINICAL HISTORY: screening,z12.39. TECHNIQUE: Bilateral full field digital CC and MLO mammographic images were obtained with 3D tomosyn thesis and utilizing computer aided detection (CAD). COMPARISON: Prior mammograms were reviewed. FINDINGS: There are no CAD designations. There are no new spiculated masses nor malignant appearing microcalcification groups. There is no significant architectural distortion nor skin thickening-retraction. IMPRESSION: No radiographic evidence of malignancy. BI-RADS Category 1 - Negative Breast Density - Category A - Almost entirely fatty Breast density Category C or D implies that the patient has dense breast tissue. Dense breast tissue can make it harder to find cancer on a mammogram. Dense breast tissue is also associated with an incr eased risk of breast cancer. This information about the result of the mammogram report was provided to the patient to raise their awareness. Use this report when you speak with the patient about their risks for breast cancer, which includes their family history. At that time, you may recommend additional screening tests (Ultrasoun d or MRI) as these tests may add significant information. A negative radiographic report should not delay biopsy if a dominant or clinically suspicious mass is present. Up to ten percent of cancers are not identified on mammography. A negative report may reinforce clinical impression. Adenosis and dense breasts may obscure an underlying neoplasm. False positive reports average 6 to 10%. Patient will receive a letter notifying them of these results.
== END ==
PROVIDERS: PCP Student in an Organized Health Care Education/Training Program; Visit Provider Student in an Organized Health Care Education/Training Program
DX: Z12.31 Encounter for screening mammogram for malignant neoplasm of breast (principal)
CPT/HCPCS: 77063; 77067

== ENCOUNTER 2022-02-24 05:48 | Day surgery (SDC) | payer MEDICARE, SELFPAY ==
[2022-02-24] VITALS (10 sets, daily range): BP systolic 86–139; BP diastolic 46–67; PULSE 54–70; RESP 10–18; TEMP 36.2–36.6; O2SAT 94–98; BMI 28.5
[2022-02-24] MEDS: Gabapentin 300 MG CAP PO (06:32)
[2022-02-24] MEDS: Celecoxib 200 MG CAP 400 MG PO (06:32)
[2022-02-24] MEDS: Acetaminophen 500 MG TAB 1000 MG PO (06:32)
--- NOTE | 2022-02-24 06:44 | W.ANESPRE ---
General Info Date of Service Date Performed: 02/24/22 Height: 5 ft 7.5 in Weight: 83.9 kg Body Mass Index (BMI): 28.5 Surgical Procedure: Operation Date: 02/24/22 08:25 Proposed Procedure Side Surgeon p Knee Total Arthroplasty Cemented PS Left Deandre Gann MD Meds Allergies and Home Medications Allergies Allergy/AdvReac Type Severity Reaction Status Date / Time aspirin AdvReac Mild abdominal Verified 02/24/22 06:01 discomfort Home Medication Medication Instructions Recorded latanoprost 0.005 % eye drops 1 drp ophthalmic (eye) HS 08/21/20 zoledronic acid 5 mg/100 mL in 100 device IV ONCE #100 mL 05/19/21 mannitol 5 %-water intravenous piggybck (Reclast) turmeric 400 mg capsule mg PO BID 12/29/21 vitamin B complex 1 tab PO DAILY 12/29/21 acetaminophen 500 mg capsule 1,000 mg PO Q8H PRN PRN #90 caps 02/24/22 aspirin 81 mg tablet,delayed 81 mg PO BID #60 tabs 02/24/22 release celecoxib 200 mg capsule (Celebrex) 200 mg PO BID #60 caps 02/24/22 dexamethasone 4 mg tablet 4 mg PO DAILY #2 tabs 02/24/22 gabapentin 300 mg capsule 300 mg PO QHS #14 caps 02/24/22 oxycodone 5 mg tablet 5 mg PO Q4H PRN #18 tabs 02/24/22 pantoprazole 40 mg tablet,delayed 40 mg PO DAILY #30 tabs 02/24/22 release (Protonix) Current Visit Medications: Current Medications Generic Name Dose Route Start Last Admin Trade Name Freq PRN Reason Stop Dose Admin Acetaminophen 1,000 mg 02/24/22 06:00 02/24/22 06:32 Acetaminophen 500 Mg Tab PO 02/24/22 16:00 1,000 mg PREOP SHAYE Administration Celecoxib 400 mg 02/24/22 06:00 02/24/22 06:32 Celecoxib 200 Mg Cap PO 02/24/22 16:00 400 mg PREOP SHAYE Administration Gabapentin 300 mg 02/24/22 06:00 02/24/22 06:32 Gabapentin 300 Mg Cap PO 02/24/22 16:00 300 mg PREOP SHAYE Administration Tranexamic Acid 1,000 mg/ 60 mls @ 360 mls/hr 02/24/22 06:00 Sodium Chloride IVPB 02/24/22 16:00 PREOP SHAYE Ringer's Solution 1,000 mls @ 80 mls/hr 02/24/22 06:00 IV 03/25/22 23:59 INFUSION SHAYE Cefazolin Sodium/Dextrose 2 gm in 50 mls @ 100 mls/hr 02/24/22 06:00 Ancef Duplex IVPB 03/25/22 23:59 PREOP SHAYE IV Miscellaneous Supplies 1 each 02/24/22 06:00 Iv Access IV 03/25/22 23:59 DIRECTED SHAYE Sodium Chloride 0 ml 02/24/22 06:00 Normal Saline Flush 10 Ml Syr IV 03/25/22 23:59 PRN PRN Sodium Chloride 0 ml 02/24/22 06:00 Normal Saline 10 Ml Vial IJ 03/25/22 23:59 DIRECTED PRN Sterile Water 0 ml 02/24/22 06:00 Water,Injection,Sterile 10 Ml Vial IJ 03/25/22 23:59 DIRECTED PRN PFSH Active Problems Active Problems: Problem Status Onset Code Osteoarthritis of left knee M17.12 Osteoarthritis of right knee M17.11 Shoulder pain, right M25.511 Osteoarthritis M19.90 Well woman exam with routine gynecological exam Z01.419 Osteoporosis M81.0 Sigmoid diverticulosis K57.30 Tubular adenoma ~08/2020 D36.9 Encounter to establish care with new doctor Z76.89 Chest pain R07.9 Atypical chest pain R07.89 Heart murmur, systolic Encounter for colorectal cancer screening Z12.11, Z12.12 Change in bowel habits R19.4 Arthritis of knee 02/12/13 M17.10 Hyperlipidemia E78.5 Medical History Medical History Comments:: Murmur listed on current medical problems, not auscultated today. Pt. reports Dr. Candelario asked her before if she had a murmur. Pt. denies she has one. Surgical History Surgical History History of appendectomy History of cataract surgery (04/22/16) Right- 04/22/16 Left- 05/06/16 History of dilation and curettage History of tonsillectomy Hx of colonoscopy (~08/2020) Tobacco Smoking/Tobacco Use Status: Former Tobacco Use Alcohol Alcohol Intake: former Substance Use Substance use: Never Substance use type: does not use Vital Signs and Lab Results Vital Signs Most Recent Vital Signs in EMR: Most Recent Vital Signs Temp Pulse Resp BP Pulse Ox 36.6 C 63 18 139/67 98 02/24/22 06:23 02/24/22 06:23 02/24/22 06:23 02/24/22 06:23 02/24/22 06:23 Lab Results Blood Type / Crossmatch: No Data to Display Complete Blood Count: White Blood Count 7.20 10^3/uL (4.4-10.8) 02/15/22 14:58 Red Blood Count 4.88 10^6/uL (3.93-5.22) 02/15/22 14:58 Hemoglobin 15.3 g/dL (11.2-15.7) 02/15/22 14:58 Hematocrit 44.7 % (36.0-46.0) 02/15/22 14:58 Platelet Count 208 10^3/uL (130-400) 02/15/22 14:58 Complete Metabolic Panel: Sodium 140 mmol/L (136-145) 02/15/22 14:58 Potassium 4.2 mmol/L (3.5-5.1) 02/15/22 14:58 Chloride 104 mmol/L (98-107) 02/15/22 14:58 Carbon Dioxide 26.7 mmol/L (21.0-32.0) 02/15/22 14:58 BUN 18 mg/dL (7-18) 02/15/22 14:58 Creatinine 0.6 mg/dL (0.55-1.02) 02/15/22 14:58 Est GFR (CKD-EPI 2020) 87.91 (mL/min/1.73m2) 02/15/22 14:58 Calcium 9.5 mg/dL (8.5-10.1) 02/15/22 14:58 Glucose 113 mg/dL (74-106) H 02/15/22 14:58 Liver Function Panel: No Data to Display Coagulation Panel: No Data to Display Cardiac Panel: No Data to Display Arterial Blood Gas: No Data to Display Venous Blood Gas: No Data to Display Pancreas Panel: No Data to Display Thyroid Panel: No Data to Display Infectious Disease: No Data to Display Blood Cultures: No Data to Display Toxicology Panel: No Data to Display Imaging and Studies Imaging and Studies Study information below may be from another EMR and interpreted by another provider. Please see original notes in EMR for more complete details. EKG Summary: EKG PATIENT NAME: MEERA JAVIER #: [id number] ORDERING PROVIDER: Maxwell Harding #: [id number] PRIMARY CARE PROVIDER:INDY JUNIOR DO DATE OF SERVICE: 11/05/19 : 1935PERFORMING LOCATION: [place] APPROVED REPORT Exam: Resting ECG Patient Location: E HR:57 bpm ECG Measurements Heart Rate 57 AXIS OH 165 P 34 QRSd 131 QRS -38 QT 458 T14 QTc 446 <Conclusion> EKG 00:19 Rate 86, intervals normal, sinus rhythm, right bundle branch block, slight alteration from EKG earlier this evening. T waves in V1 and V2 are now upright, minimal flattening of V4 V5 and V6 comparatively, no evidence of significant ST elevations or depressions though, no evidence of STEMI negative for SCARBOSSA bacteria. EKG PATIENT NAME: MEERA JAVIER #: [id number] ORDERING PROVIDER: Maxwell Harding #: [id number] PRIMARY CARE PROVIDER:INDY JUNIOR DO DATE OF SERVICE: 11/05/19 : 1935PERFORMING LOCATION: [place] APPROVED REPORT Exam: Resting ECG Patient Location: E HR:57 bpm ECG Measurements Heart Rate 57 AXIS OH 165 P 34 QRSd 131 QRS -38 QT 458 T14 QTc 446 <Conclusion> EKG 00:19 Rate 86, intervals normal, sinus rhythm, right bundle branch block, slight alteration from EKG earlier this evening. T waves in V1 and V2 are now upright, minimal flattening of V4 V5 and V6 comparatively, no evidence of significant ST elevations or depressions though, no evidence of STEMI negative for SCARBOSSA bacteria. Echocardiogram Summary: Patient Name: MEERA JAVIER #: [id number]: MS Ordering Provider: Yony Mccloud #: [id number]: ADM KUSH Primary Care Provider: Indy Junior of Exam: 11/05/19ex: F Admission Date: 11/05/19 : 1935 Age: 84 Exam(s) a US:US echocardiogram APPROVED REPORT EXAM: Comprehensive 2D, Doppler, and color-flow Echocardiogram Patient Location: In-Patient Room/Bed: [facility] [employer]: Chinyere Gabriel RDCS (AE) Indications: Atypical chest pain, Murmur Other Information Study Quality: Good Conclusion Normal left ventricular wall thickness and chamber size. Estimated ejection fraction is 60%. There are no segmental wall motion abnormalities Normal right ventricular size and systolic function Both atria are normal in size Valve is trileaflet and sclerotic without stenosis or regurgitation Mild mitral annular calcification. Trace mitral regurgitation Trace physiologic tricuspid regurgitation Anesthesia Assessment and Plan Anesthesia History Personal History: No History of Anesthesia Complications Family History: No Family History of Anesthesia Complications Exercise Tolerance Exercise Tolerance: Metabolic Equivalents>4 Pertinent Negatives Pertinent Negatives: No Symptoms of GERD, No Major Cardiovascular Symptoms or Complaints, No Major Pulmonary Symptoms or Complaints and No History of CVA/TIA Cardiac & Pulmonary Exam Cardiac Exam: Normal S1/S2 Heart Sounds Pulmonary Exam: Clear Bilateral Breath Sounds Implantable Cardiac Device Does patient have a Pacemaker or an ICD?: No Airway Exam Known Difficult Airway: No Mallampati Class: 2 Mouth Opening: Normal (> 3cm) Thyromental Distance: Greater than 3 cm Neck Range of Motion: Full ROM Neck Circumference: Normal Teeth Condition: Normal Dentition ASA Classification ASA Score: ASA 2 Emergency Case?: No NPO Status NPO Status: NPO Clears >2 hours, Solids >8 hours Anesthesia Plan Resuscitation Status: Full Code Anesthesia Technique: Spinal Anesthesia Airway Planned: Natural Airway Pain Management: Surgeon and patient request nerve block Monitors Used: Standard Monitors
[2022-02-24] MEDS: Lactated Ringers 1,000 ML 80 ML IV (06:50)
--- NOTE | 2022-02-24 07:32 | W.PM.DSUDISC ---
Date of service: 02/24/22 Time of Service: 11:30 Discharge Plan Disposition Patient Disposition: HOME Condition: Good Discharge Details Reason For Visit: Left TKA Attending Provider: Deandre Gann Primary Care Provider: Indy Junior Home Meds and New Rx's Prescriptions: New celecoxib [Celebrex] 200 mg capsule 200 mg PO BID Qty: 60 0RF aspirin 81 mg tablet,delayed release (DR/EC) 81 mg PO BID Qty: 60 0RF pantoprazole [Protonix] 40 mg tablet,delayed release (DR/EC) 40 mg PO DAILY Qty: 30 0RF dexamethasone 4 mg tablet 4 mg PO DAILY Qty: 2 0RF gabapentin 300 mg capsule 300 mg PO QHS Qty: 14 0RF acetaminophen 500 mg capsule 1,000 mg PO Q8H PRN PRNQty: 90 0RF oxycodone 5 mg tablet 5 mg PO Q4H PRNQty: 18 0RF Continued zoledronic [id number] [Reclast] 5 mg/100 mL piggyback 100 device IV ONCE Qty: 100 0RF Rx Instructions: administer over at least 15 mins turmeric 400 mg capsule PO BID Label Comments: Pt started for anti-inflammatory/arthritis 11/2021 vitamin B complex Tablet 1 tab PO DAILY latanoprost 0.005 % drops 1 drp ophthalmic (eye) HS Discharge Instructions Additional Instructions: Total Knee Discharge Instructions Activity: The most important activity is to walk and to work on gentle motion (both flexion and extension). You should try to take short walks a few times a day. It is important that when resting you work on keeping the knee straight. Avoid putting a pillow behind the knee as this will encourage flexion. Work on range of motion exercises as provided by Physical Therapy. - Start outpatient physical therapy within 2 weeks. - You should wear the KIM hose on both legs for 2 weeks. You may remove these at night. You may also use any compression sock in place of the KIM hose. - Utilize [employer] to review exercises, see videos on exercises and obtain basic information pertaining to your surgery and your recovery. Dressing: Remove the Mike wrap by 2 days after your surgery and put on the KIM stocking given to you from the hospital. Keep the surgical dressing (underneath the MIKE wrap) in place for at least one week. After the first week it may be removed and replaced with light gauze and tape or nothing. The wound and dressing may get wet after 3 days but avoid soaking the dressing or otherwise it will need to be changed. Many people prefer covering the dressing with cling wrap (saran wrap) to minimize it from getting soaked. If it gets wet, just pat dry. If it starts to peel off then it will need to be changed. Medications: - You should take Tylenol and anti-inflammatory Celebrex as your primary pain control medications. If the Celebrex is too expensive or not covered, please call the office for another alternative (Advil/Ibuprofen or Naproxen/Aleve) - You have been prescribed a stronger pain medication Oxycodone for breakthrough pain, take as needed as prescribed. - You have also been prescribed a stomach acid reduction agent Pantoprozole to help reduce stomach acid and reflux. - You have been prescribed Gabapentin to take at night for restlessness and nerve pain. - You will be taking Aspirin 81mg twice a day for DVT prevention unless instructed otherwise. - You have also been prescribed Decadron to take to control post-operative nausea and pain. You will start this tomorrow. - If you have constipation you should take Colace or Miralax (both [id number]). It takes most people 3-4 days to have a bowel movement. Follow-up: 2 weeks If you have any acute concerns or questions, please do not hesitate to contact the office at [phone]. You may contact Dr. Gann with any questions after hours through the hospital at [phone] or on his cell phone at [phone]. Referrals: Deandre Gann MD [ [facility] STAFF PHYSICIAN] - Equipment/Supplies: Walker Activity:: Activity as Tolerated Remove Dressings/Wound Care:: Do Not Remove Shower/Bathe:: 72 hours Diet:: As Tolerated Discharge Orders Discharge Orders: Discharge Order (Routine); Ordered 02/24/22 Ordered By: Stacy Hawley DS: Diagnosis Discharge Diagnosis (1) Osteoarthritis of left knee: Status: Acute
[2022-02-24] MEDS: ceFAZolin 2 GM/50 ML BAG IVPB (08:18)
--- NOTE | 2022-02-24 08:53 | W.ANESNERVE ---
Nerve Block Single Injection Procedure Date and Time Date Performed: 02/24/22 Procedure Start: 07:31 Location Where Procedure Performed Procedure Location: Day Surgery Unit Reason Performed: Postoperative Analgesia Requesting Provider: Deandre Gann Timeout Performed Timeout Performed: Yes Monitoring Used ECG, Blood Pressure, SpO2 and See EMR for corresponding vital signs Sterility Sterility: Hand Hygiene, Surgical Cap, Surgical Mask, Sterile Gloves and Chlorhexidine Sedation Given During Procedure Sedation Given (Indicate Dose Given): No Sedation given Patient Mental Status Patient Mental Status: Awake Nerve Block 1st Nerve Block: Laterality: Left Block Type: Adductor Canal Needle / Catheter Used: 100mm SonoPlex II Local Anesthetic Bolus (Indicate Dose Given): Lidocaine used for local infiltration of skin, Injected in 3-5ml increments after negative blood aspiration and Bupivacaine 0.25% Dose:: 15 ml Additives (Indicate Dose Given): Precedex Dose:: 80 mcg Ultrasound: Sterile probe cover and gel used Ultrasound Image Saved?: Yes Nerve Stimulator: Not Used Paresthesia: None Procedure Tolerated: No Complications and Patient tolerated well Procedure Outcome: Successful Performed By: Manish Menchaca
--- NOTE | 2022-02-24 12:18 | PT.INIE ---
Date of service: 02/24/22 Time of Service: 12:18 PT Notes Visit Reasons: Left TKA Physical Therapy Day Surgery Initial Evaluation Date: 02/24/2022 Referring Doctor: KOKI Friedman PT Orders: PT CONSULT: S/P Ortho surgery Precautions: WBAT on left LE with AD. Patient Profile/Admitting Diagnosis: Maria Fernanda is an 86-year-old female with degenerative joint disease of the left knee and is status post left total knee arthroplasty on postoperative day 0. PMHX: Surgical History? History of appendectomy History of cataract surgery (04/22/16) Right- 04/22/16 Left- 05/06/16 History of dilation and curettage History of tonsillectomy Hx of colonoscopy (~08/2020) Social History/Home Situation: Lives alone on the first floor of an apartment building with no steps to enter but with an elevator. Independent with all aspects of ADLs prior to surgery. Equipment Owned/DME: [facility] Subjective: Reports 1/10 pain in the left knee throughout. Denies headache, chest pain, and lightheadedness throughout session. Objective: Supine in stretcher. General Observation: HANS wraps to left LE. Cryo/Cuff to left knee. TEDS on right leg. Mental Status: Oriented x4 Pain: 1/10 left knee ROM: Right Lower Extremity: Hip flexion WFL. Hip abduction WFL. Knee flexion WFL. Ankle dorsiflexion WFL. Ankle plantarflexion WFL. Left Lower Extremity: Hip flexion WFL. Hip abduction WFL. Knee flexion about 10 degrees to 95 degrees. Knee extension about -10 degrees. Ankle dorsiflexion WFL. Ankle plantarflexion WFL. Strength: Right Lower Extremity: Hip flexors 5/5. Hip abductors 5/5. Knee flexors 5/5. Knee extensors 5/5. Ankle dorsiflexors 5/5. Ankle plantarflexors 5/5. Left Lower Extremity:Hip flexors 5/5. Hip abductors 5/5. Knee flexors 3-/5. Knee extensors 3-/5. Ankle dorsiflexors 5/5. Ankle plantarflexors 5/5. Sensation: Intact as to pain and light pressure in bilateral lower extremities Bed Mobility/Transfers: Supine to sit standby assist Sit to stand standby assist Stand to sit standby assist Bed to chair standby assist THERA EX: Seated LAQs x 10 Seated hip flexion x 10 Quadriceps sets x 10 Gluteal sets x 10 Ankle DF/PF x 10 Gait: 150 feet using front wheeled walker with step to gait pattern requiring standby assist. Good quad activation on the left. Motor cueing provided for much improved posture and safer gait speed. Balance: Static Sitting: Normal Dynamic Sitting: Normal Static Standing: Fair Dynamic Standing: Fair Special Tests: Mobility Limitations Standardized Measure [facility] 6 clicks Basic Mobility Inpatient Short Form: Raw Score: 24 CMS Score: 0% deficit Informed Consent/Education: Patient instructed in purpose of PT consult. Packet containing TKA exercise protocol has been given to patient. Education and training on initial set of exercises that can be done at home have been completed with patient. Assessment: Maria Fernanda requires the use of a front wheeled walker for all mobility ADL performance to reduce fall risk and maximize independence. Patient presents with clinical signs and symptoms consistent with current/admitting diagnoses that have resulted to mobility limitations, gait instability, generalized weakness, and impairment of motor control as demonstrated by the following impairment level findings: 1. Decreased strength to left knee major muscle groups 2. Impaired standing balance 3. Limitation of joint range of motion in left knee Impairments are contributing to the following functional limitations: 1. Inability to safely ambulate without assistive device 2. Increase completion time for mobility ADL performance 3. Increased fall risk Patient is assessed as a 84529 moderate complexity based on the following: History: 86-year-old female with impairment level findings, functional limitations, and past medical history as indicated above Examination: Demonstrable impairment in strength, balance, and mobility level with underlying impairments and functional limitations as documented above Presentation: Evolving Decision Makin moderate complexity Goals: N/A. PT evaluation and 1-2 treatment sessions only for functional mobility training using recommended AD and for HEP instruction. Plan of Care/Treatment Plan: N/A. PT evaluation and 1-2 treatment session only for functional mobility training using recommended AD and for HEP instruction. DISCHARGE RECOMMENDATIONS: [] Home with no services [] [] Home with services [specify] [X] Home with outpatient PT. Home when medically cleared by orthopedic surgeon. May benefit from outpatient PT services in order to optimize functional mobility outcomes and facilitate independent community ambulation with least restrictive ambulatory device [] SNF for continued rehabilitation [] [] [facility] [] [] SNF versus LTC based on ability to participate and progress [] TREATMENT CODE/TIME: 9716 2 x 20 minutes, 9753 0 x 17 minutes beginning at 12:18 PM. Thank you for the opportunity to participate in the care of this patient. Syl Arrington PT, DPT, CLT [facility] [place], [place]
--- NOTE | 2022-02-24 12:57 | W.ANESPOSTOP ---
Postoperative Evaluation Date, Time and Location Date Performed: 02/24/22 Time Performed: 12:58 Patient Location: Day Surgery Unit Vital Signs Most Recent Imported Vital Signs: Most Recent Vital Signs Temp Pulse Resp BP Pulse Ox 36.6 C 58 L 16 119/58 L 94 02/24/22 12:08 02/24/22 12:08 02/24/22 12:08 02/24/22 12:08 02/24/22 12:08 Pain Score Most Recent Pain Score: Most Recent Pain Score Pain Level 0 02/24/22 12:08 Assessment Mental Status: Awake (Alert & Oriented to Patient Baseline) Airway and Respiratory Function: Patent airway with normal (patient baseline) respiratory exam Cardiovascular Function: Hemodynamically Stable Hydration Status: Adequately Hydrated Nausea & Vomiting: No Nausea or Vomiting Pain: Pt. Denies Any Pain Peripheral Nerve Block: Regional nerve block not resolved at time of post operative discharge
--- NOTE | 2022-02-24 18:33 | W.PM.OP ---
Date of service: 02/24/22 Time of Service: 10:00 Operative Note Operative Note DATE OF PROCEDURE: 02/24/22 PRE-OP DIAGNOSIS: Left Knee Osteoarthritis POST-OP DIAGNOSIS: same PROCEDURE: Right Total Knee Replacement SURGEON: Deandre Gann CIRCULAR SAW EDGE FUSER: Stacy Hawley ANESTHESIA TYPE: Spinal Refer to Anesthesia Record ESTIMATED BLOOD LOSS: 50 PATHOLOGY: none sent COMPLICATIONS: None Patient was transported to: PACU Patient's condition: stable Implants: 1. Depuy Attune Posterior Stabilized Femoral Component, Size 6 2. Depuy Attune Rotating Platform Tibial Component, Size 5 3. Depuy Attune 6x7 RP/PS Poly 4. Depuy Attune Patellar Component, Size 35 Indications: I have seen Maria Fernanda in clinic for symptoms of LEFT knee arthritis, confirmed with radiographic findings. Maria Fernanda has exhausted nonoperative methods and was having significant limitations in daily function and desired better function and less pain. I discussed the technical details of a knee replacement. I explained the risks of the procedure to include, but not limited to, bleeding, infection, pain, stiffness, fracture, damage to nerves and vessels, damage to muscles and tendons, loosening, need for repeat procedure, blood clot and cardiopulmonary demise. Despite these risks, [NAME] elected to proceed. Findings: There was significant signs of arthritis throughout the knee with deformity of the lateral tibia. Procedure Description: Maria Fernanda was greeted in the preoperative holding area where the correct side was identified and marked. The consent was reviewed with the patient and signed. The history and physical was updated. All questions were answered. Preoperative mediacations were administered: Acetaminophen 1000mg, Celebrex 400mg, and Gabapentin 300mg. An adductor canal block was then administered by the anesthesia team in the PACU. Maria Fernanda was taken back to the operating room. A spinal anesthestic was then administered. The patient was placed into the supine position on the operating room table. A nonsterile tourniquet was placed high onto the leg but only used for cementing. Posts were placed for positioning during the procedure. All bony prominences were well padded. Prophylactic antibiotics in the form of Cefazolin were administered. 1g of Tranxemic Acid was given intravenously within 30 minutes of incision. The left leg was then prepped with Chloraprep and draped in a standard fashion with impervious stockinette. A second prep with Chloraprep was performed prior to application of Iodine impregnated skin protection. A timeout to confirm correct identity, side and site, procedure, allergies, anesthesia, and medical concerns was performed. With the knee in some flexion, a midline incision was made overlying the knee. Full thickness skin flaps were raised once the extensor mechanism was encountered. These were raised medially and laterally. Any bleeding was controlled with electrocautery. Once the extensor mechanism was fully exposed, a medial parapatellar arthrotomy was performed in a flexed position. All bleeding from the arthrotomy and the geniculate arteries was coagulated. A medial subperiosteal peel was performed with electrocautery to the midcoronal plane. The fat pad was removed while keeping the patellar tendon protected. The anterior distal femur synovium was removed for later visualization. The ACL and PCL were resected and the anterior horn of the lateral meniscus was transected. The knee was then flexed with the patella everted. Large osteophytes from the tibia were removed. Large osteophytes from the femur were removed. Using a step drill, and based on preoperative templating, the femoral canal was entered. This was done with a step drill without any difficulty. The intramedullary distal femoral cut guide was inserted, set to a 4 degree valgus cut and 9mm cut thickness. The distal femoral cut guide was then held in position and pinned. With the soft tissues protected, the distal cut was performed. This was passed over a few times to ensure a planar cut. I then turned attention to the tibia. The extramedullary guide was placed onto the leg. The distal aspect was slid medial to adjust for position of center of ankle and stay in line with shaft of the tibia. Approximately 3 degrees of posterior slope was kept in the proximal cutting guide. The center of the guide was aligned with the PCL. The stylus was used to assess cut thickness. The lateral side, most involved side, was set for a 4mm cut. This was then held in position and pinned into place with 2 additional pins and a cross pin for stability. The medial and lateral collateral ligaments were protected and the cut was performed. With this completed, it was assessed and noted to be of appropriate dimensions. The guide was removed. A spacer block was inserted and the knee was brought into extension. The 7mm spacer block provided full extension, without hyperextension and with stability of both the medial and lateral collateral ligaments was assessed. The pins from the femur and the tibia were then removed. The distal femur was then sized. The anterior stylus was placed onto the lateral ridge of the anterior femur. This indicated a size 6 femur. The external rotation of the guide was adjusted to 3 degrees to match the epicondylar axis, perpendicular to [place]?s line. The 4-in-1 cutting guide was the placed. The posterior medial femur cut was evaluated and appeared of good thickness. The spacer block was inserted underneath the cutting guide and stability was confirmed in 90 degrees of flexion. An kenneth wing was used to confirm appropriate position of the anterior cut to avoid notching. This cutting guide was ensured to be flush on the cut surface and then pinned into place with headed pins. While protecting the soft tissues, quad tendon, and collateral ligaments, the anterior and posterior cuts were performed with a saw. The central two pins were removed and the posterior and anterior chamfers were cut next. The notch-cutting guide was placed. This was pinned to lateralize the femoral component as much as possible while keeping it flush on the cut surface. This was then pinned into position. A reciprocating saw was used to make the notch cut. A rasp smoothed the cut surfaces. A trial posterior stabilized femoral component was then inserted, impacted down to the cut surfaces, and the lug holes were drilled. A provisional trial tibial component was placed and the knee was brought through range of motion. There was noted to be excellent extension and flexion. There was no significant instability. The patella was tracking without thumbs. The tibial cut surface was fully exposed. The medial and lateral menisci were removed. The tibia was then sized as a 5. The tibia had been previously marked during trialing to correspond to the center of the tibial component to help with rotation. The trial was aligned to this jovan, approximately rotated to the medial 1/3rd of the tibial tubercle. The trial was pinned into place. The tibia was prepared with a reamer and a keel punch. The knee was then brought into extension and the patella was measured as 23mm. Using the patellar clamp and cut guide, this was resected to a flat surface with at least 13mm of thickness remaining. The size 35 patella fit the best. This was oriented and then clamped into position. The lugs were drilled. The trial components were removed. The final components, except for the polyethylene were opened on the back table. The periosteal and capsular tissues, especially posteriorly, around the knee were then systematically injected with a periarticular cocktail consisting of 246mg of Ropivacaine, 0.5mg of Epinephrine, and 30mg of Ketorolac, diluted to 100cc.. The tourniquet was then inflated to 275mmHg. The knee was thoroughly irrigated with a pulse lavage and dried. On the back table, with the implants opened, the cement was mixed. 2 batches of medium viscosity cement were prepared with vacuum assistance. After the cement was ready a small amount was placed on to the back side of the tibial component at the keel. A small amount was placed onto the posterior flange of the femur. Cement was manual pressurized and impregnated into the cut surface of the tibia. The tibial component was then inserted into the cut surface and impacted into position. Excess cement was removed and the component was reimpacted. Again, excess cement was removed and our attention was then turned to the femur. The femoral cut surface was once again dried and cement was manually impacted into the cut surface. The femoral component was lined with the lug holes and impacted. Excess cement was removed. It was ensured to be down against the cut surface. The trial polyethylene was then inserted and the leg was brought out into full extension for the duration of the cement curing process, approximately 18min. Cement was lastly manually impacted into the cut surface of the patella and the patellar button was clamped into position and held. During this process attention was turned to the gutters of the knee and for all interfaces for any excess cement. While the cement was hardening, the knee was irrigated with Surgiphor chlorhexadine solution. This was allowed to sit in the knee for 3 minutes and then it was thoroughly irrigated with saline. After the cement had finally cured, approximately 18min, the clamp was removed from the patella and the knee was taken through range of motion. A size 7mm polyethylene component provided the best range of motion and stability with less than 2mm gapping with medial and lateral stress and full extension without significant hyperextension. The patella was tracking with a no-thumbs technique. The trial poly was removed and once again the knee was checked for any loose, excess, or errant cement. The poly component was then inserted and impacted into position after cleaning and drying the tibial tray. The capsule was then reapproximated with a No. 1 Vicryl at multiple locations. The capsule was finally closed with a No. 2 Stratafix, barbed suture. The tourniquet was then released and the arthrotomy appeared watertight without significant bleeding. Deep tissues were then reapproximated with 0 Vicryl and 2-0 Monocryl. The skin was closed with a running 3-0 Monocryl in a subcuticular fashion. This was reinforced with skin glue. A Mepilex silver dressing was applied along with a [id number] HANS wrap. A CryoCuff was applied. Maria Fernanda was transferred to the hospital bed without difficulty an suffering no apparent complication. Maria Fernanda has a good prognosis. Physical therapy will start today and without restrictions, weight-bearing as tolerated. Aspirin 81mg BID will be used for DVT prophylaxis.
== END 2022-02-24 13:57 | disposition home or self-care (01) ==
PROVIDERS: PCP Student in an Organized Health Care Education/Training Program; Visit Provider Student in an Organized Health Care Education/Training Program
PROC: (CPT 27447; principal; 2022-02-24 08:15)
DX: M17.12 Unilateral primary osteoarthritis, left knee (principal)
CPT/HCPCS: 27447; C1776; 76942; 97162; 97530; J0690; J1100; J2405

== ENCOUNTER 2022-03-11 11:44 | Outpatient (CLI) | payer MEDICARE, SELFPAY ==
--- NOTE | 2022-03-11 11:15 | DI.RAD_ITS ---
Exam(s) XR KNEE LT 1V XR STANDING ALIGNMENT EXAM: XR STANDING ALIGNMENT CLINICAL HISTORY: 1ST POST OP L TKA TECHNIQUE: COMPARISON: CR XR STANDING ALIGNMENT from 02/15/2022 CR XR KNEE LT 1V from 03/11/2022 FINDINGS: Standing alignment views of both lower extremities are interpreted in conjunction with a lateral view of the left knee. There are severe degenerative changes of both hips. There is a total knee joint replacement in posit ion on the left, the components of the TKR appear well seated. There appear to be moderate to severe degenerative changes of the medial and lateral tibiofemoral molly nts on the right. IMPRESSION: RADIATION DOSE DELIVERED: Total DLP
== END 2022-03-11 11:45 | disposition home or self-care (01) ==
LOC: DIORS 11:44
PROVIDERS: PCP Student in an Organized Health Care Education/Training Program; Referring Provider Student in an Organized Health Care Education/Training Program; Visit Provider Student in an Organized Health Care Education/Training Program
DX: Z96.652 Presence of left artificial knee joint (principal); Z47.1 Aftercare following joint replacement surgery
CPT/HCPCS: 73560; 77073

== ENCOUNTER → 2022-04-12 15:08 | Outpatient (BNVA) | payer MEDICARE, SELFPAY | PROVIDERS: PCP Student in an Organized Health Care Education/Training Program; Referring Provider Student in an Organized Health Care Education/Training Program; Visit Provider Student in an Organized Health Care Education/Training Program | DX: Z47.1 Aftercare following joint replacement surgery (principal); Z96.652 Presence of left artificial knee joint ==

== ENCOUNTER → 2022-05-27 08:47 | Outpatient (BNVA) | payer MEDICARE, SELFPAY | PROVIDERS: PCP Student in an Organized Health Care Education/Training Program; Referring Provider Student in an Organized Health Care Education/Training Program; Visit Provider Physician Assistant | DX: Z47.1 Aftercare following joint replacement surgery (principal); Z96.652 Presence of left artificial knee joint ==

== ENCOUNTER 2022-07-22 02:11 | Outpatient (RCR) | payer MEDICARE, SELFPAY ==
[2022-07-22] MEDS: ZOLEDRONIC ACID/MANNITOL/WATER 5 MG/100 ML BTL 300 MG IVPB (13:10)
[2022-07-22] MEDS: Normal Saline Flush 10 ML SYR IVP (13:15)
== END 2022-07-23 23:59 | disposition home or self-care (01) ==
LOC: INF 02:11
PROVIDERS: PCP Student in an Organized Health Care Education/Training Program; Visit Provider Student in an Organized Health Care Education/Training Program
DX: M81.0 Age-related osteoporosis without current pathological fracture (principal)
CPT/HCPCS: 96365; J3489

== ENCOUNTER → 2022-11-29 07:47 | Outpatient (BNVA) | payer MEDICARE, SELFPAY | PROVIDERS: PCP Student in an Organized Health Care Education/Training Program; Referring Provider Student in an Organized Health Care Education/Training Program; Visit Provider Student in an Organized Health Care Education/Training Program | DX: M17.11 Unilateral primary osteoarthritis, right knee (principal) | CPT/HCPCS: 99213 ==

== ENCOUNTER 2023-01-20 04:58 | Outpatient (CLI) | payer MEDICARE, SELFPAY ==
[2023-01-20 14:09] LABS: HCT 41.7 % (36.0-46.0); HGB 14.1 g/dL (11.2-15.7); MCH 31.9 pg (27.0-33.0); MCHC 33.8 % (32.0-36.0); MCV 94 fL (80-95); MPV 9.6 fL (8.0-11.0); Platelet Count 182 10^3/uL (130-400); RBC 4.42 10^6/uL (3.93-5.22); RDW 12.2 % (11.7-14.6); RDW-SD 42.8 fL; WBC 5.32 10^3/uL (4.4-10.8)
[2023-01-20 15:05] LABS: BUN 13 mg/dL (7-18); CREATININE 0.6 mg/dL (0.55-1.02); Calcium 9.4 mg/dL (8.5-10.1); Chloride 105 mmol/L (98-107); Estimated GFR 87.36 (mL/min/1.73m2); Glucose 120 mg/dL (74-106); Potassium 3.9 mmol/L (3.5-5.1); Sodium 142 mmol/L (136-145)
== END 2023-01-20 04:59 | disposition home or self-care (01) ==
LOC: LBO 04:58
PROVIDERS: PCP Student in an Organized Health Care Education/Training Program; Visit Provider Student in an Organized Health Care Education/Training Program
DX: M17.11 Unilateral primary osteoarthritis, right knee (principal); M25.561 Pain in right knee; Z01.818 Encounter for other preprocedural examination; Z01.812 Encounter for preprocedural laboratory examination
CPT/HCPCS: 36415; 80048; 85027

== ENCOUNTER 2023-01-25 06:58 | Day surgery (SDC) | payer MEDICARE, SELFPAY ==
[2023-01-25] VITALS (8 sets, daily range): BP systolic 105–165; BP diastolic 50–78; PULSE 52–64; RESP 15–19; TEMP 34.6–36.8; O2SAT 95–99; BMI 29.3
[2023-01-25] MEDS: Acetaminophen 500 MG TAB 1000 MG PO (07:14)
[2023-01-25] MEDS: Gabapentin 300 MG CAP PO (07:15)
[2023-01-25] MEDS: Celecoxib 200 MG CAP 400 MG PO (07:15)
[2023-01-25] MEDS: Lactated Ringers 1,000 ML 80 ML IV (07:46)
--- NOTE | 2023-01-25 08:30 | ANES.PREOP_ITS ---
General Info Date of Service Date Performed: 01/25/23 Height: 5 ft 7 in Weight: 85.1 kg Body Mass Index (BMI): 29.3 Surgical Procedure: Operation Date: 01/25/23 09:25 Proposed Procedure Side Surgeon p Knee Total Arthroplasty w/OrthAlign, Cemented PS (previous Fem-size 6, Tib- size 5) Right Deandre Gann MD Actual Procedure Side Surgeon p Knee Total Arthroplasty w/OrthAlign, Cemented PS (previous Fem-size 6, Tib- size 5) Right Deandre Gann MD Meds Allergies and Home Medications Allergies Allergy/AdvReac Type Severity Reaction Status Date / Time aspirin AdvReac Mild abdominal Verified 01/25/23 07:47 discomfort Home Medication Medication Instructions Recorded latanoprost 0.005 % eye drops 1 drp ophthalmic (eye) HS 08/21/20 zoledronic acid 5 mg/100 mL in 100 device IV ONCE #100 mL 05/19/21 mannitol 5 %-water intravenous piggybck (Reclast) vitamin B complex 1 tab PO DAILY 12/29/21 aspirin 81 mg tablet,delayed 81 mg PO DAILY 04/12/22 release acetaminophen 500 mg capsule 500 mg PO QHS 12/18/22 tumeric 100 mg-breonna 150 mg-olive 1 cap PO DAILY 01/20/23 50 mg-oreg 150 mg-caprylate capsule Current Visit Medications: Current Medications Generic Name Dose Route Start Last Admin Trade Name Freq PRN Reason Stop Dose Admin Acetaminophen 1,000 mg 01/25/23 06:00 01/25/23 07:14 Acetaminophen 500 Mg Tab PO 02/24/23 05:59 1,000 mg PREOP SHAYE Administration Celecoxib 400 mg 01/25/23 06:00 01/25/23 07:15 Celecoxib 200 Mg Cap PO 02/24/23 05:59 400 mg PREOP SHAYE Administration Gabapentin 300 mg 01/25/23 06:00 01/25/23 07:15 Gabapentin 300 Mg Cap PO 02/24/23 05:59 300 mg PREOP SHAYE Administration Hydromorphone HCl 0.5 mg 01/25/23 07:25 Hydromorphone 2 Mg/Ml Syr IVP 02/24/23 07:24 Q2H PRN PRN Tranexamic Acid 1,000 mg/ 60 mls @ 360 mls/hr 01/25/23 06:00 Sodium Chloride IVPB 02/24/23 05:59 PREOP SHAYE Ringer's Solution 1,000 mls @ 80 mls/hr 01/25/23 06:00 01/25/23 07:46 IV 02/23/23 23:59 80 mls/hr INFUSION SHAYE Administration Cefazolin Sodium/Dextrose 2 gm in 50 mls @ 100 mls/hr 01/25/23 06:00 Ancef Duplex IVPB 02/23/23 23:59 PREOP SHAYE Cefazolin Sodium/Dextrose 1 gm in 50 mls @ 100 mls/hr 01/25/23 08:00 Ancef Duplex IVPB 01/26/23 00:29 Q8H SHAYE IV Miscellaneous Supplies 1 each 01/25/23 06:00 Iv Access IV 02/23/23 23:59 DIRECTED SHAYE Ondansetron HCl 4 mg 01/25/23 07:25 Ondansetron 4 Mg/2 Ml Vial IVP 02/24/23 07:24 Q6H PRN PRN Nausea Oxycodone HCl 0 mg 01/25/23 07:25 Oxycodone 5 Mg Tab PO 02/24/23 07:24 Q3H PRN PRN Pain Sodium Chloride 0 ml 01/25/23 06:00 Normal Saline Flush 10 Ml Syr IV 02/23/23 23:59 PRN PRN Sodium Chloride 0 ml 01/25/23 06:00 Normal Saline 10 Ml Vial IJ 02/23/23 23:59 DIRECTED PRN Sterile Water 0 ml 01/25/23 06:00 Water,Injection,Sterile 10 Ml Vial IJ 02/23/23 23:59 DIRECTED PRN PFSH Active Problems Active Problems: Problem Status Onset Code Osteoarthritis of right knee M17.11 Shoulder pain, right M25.511 Well woman exam with routine gynecological exam Z01.419 Osteoporosis M81.0 Heart murmur, systolic Hyperlipidemia E78.5 Medical History Medical History Arthritis of knee (02/12/13) Atypical chest pain Pt states was due to gerd/stress and resolved after moving Change in bowel habits Significant effort needed to evacuate; Hx polyps. Pt prefers not to start meds/fiber as actual stool does not seem problematic. Encounter for colorectal cancer screening NEG 08/2020 .. Next PRN (review in 5 yrs) Encounter to establish care with new doctor Transfer from Dr. Candelario, basically very healthy. Sigmoid diverticulosis per colo, 08/2020. No Hx diverticulitis. Tubular adenoma (~08/2020) Medical History Comments:: Murmur listed on current medical problems, not auscultated today. Pt. reports Dr. Candelario asked her before if she had a murmur. Pt. denies she has one. Surgical History Surgical History History of appendectomy History of cataract surgery (04/22/16) Right- 04/22/16 Left- 05/06/16 History of dilation and curettage History of tonsillectomy History of total left knee replacement (02/24/22) Hx of colonoscopy (~08/2020) x5 Tobacco Smoking/Tobacco Use Status: Former Tobacco Use Alcohol Alcohol Intake: former Substance Use Substance use: Never Substance use type: does not use Vital Signs and Lab Results Vital Signs Most Recent Vital Signs in EMR: Most Recent Vital Signs Temp Pulse Resp BP Pulse Ox 35.9 C L 63 16 165/68 H 98 01/25/23 07:21 01/25/23 07:21 01/25/23 07:21 01/25/23 07:21 01/25/23 07:21 Lab Results Blood Type / Crossmatch: No Data to Display Complete Blood Count: White Blood Count 5.32 10^3/uL (4.4-10.8) 01/20/23 14:03 Red Blood Count 4.42 10^6/uL (3.93-5.22) 01/20/23 14:03 Hemoglobin 14.1 g/dL (11.2-15.7) 01/20/23 14:03 Hematocrit 41.7 % (36.0-46.0) 01/20/23 14:03 Platelet Count 182 10^3/uL (130-400) 01/20/23 14:03 Complete Metabolic Panel: Sodium 142 mmol/L (136-145) 01/20/23 14:03 Potassium 3.9 mmol/L (3.5-5.1) 01/20/23 14:03 Chloride 105 mmol/L (98-107) 01/20/23 14:03 Carbon Dioxide 29.0 mmol/L (21.0-32.0) 01/20/23 14:03 BUN 13 mg/dL (7-18) 01/20/23 14:03 Creatinine 0.6 mg/dL (0.55-1.02) 01/20/23 14:03 Est GFR (CKD-EPI 2020) 87.36 (mL/min/1.73m2) 01/20/23 14:03 Calcium 9.4 mg/dL (8.5-10.1) 01/20/23 14:03 Glucose 120 mg/dL (74-106) H 01/20/23 14:03 Liver Function Panel: No Data to Display Coagulation Panel: No Data to Display Cardiac Panel: 2 No Data to Display Arterial Blood Gas: No Data to Display Venous Blood Gas: No Data to Display Pancreas Panel: No Data to Display Thyroid Panel: No Data to Display Infectious Disease: No Data to Display Blood Cultures: No Data to Display Toxicology Panel: No Data to Display Imaging and Studies Imaging and Studies Study information below may be from another EMR and interpreted by another provider. Please see original notes in EMR for more complete details. EKG Summary: EKG PATIENT NAME: MEERA JAVIERMORENITA #: [id number] ORDERING PROVIDER: Maxwell Harding #: [id number] PRIMARY CARE PROVIDER:INDY JUNIOR DO DATE OF SERVICE: 11/05/19 : 1935PERFORMING LOCATION: [place] APPROVED REPORT Exam: Resting ECG Patient Location: E HR:57 bpm ECG Measurements Heart Rate 57 AXIS [place] 165 P 34 QRSd 131 QRS -38 QT 458 T14 QTc 446 <Conclusion> EKG 00:19 Rate 86, intervals normal, sinus rhythm, right bundle branch block, slight alteration from EKG earlier this evening. T waves in V1 and V2 are now upright, minimal flattening of V4 V5 and V6 comparatively, no evidence of significant ST elevations or depressions though, no evidence of STEMI negative for SCARBOSSA bacteria. EKG PATIENT NAME: GASTONDEXTERMEERA TRACYMORENITA #: [id number] ORDERING PROVIDER: Maxwell Harding #: [id number] PRIMARY CARE PROVIDER:INDY JUNIOR DO DATE OF SERVICE: 11/05/19 : 1935PERFORMING LOCATION: [place] APPROVED REPORT Exam: Resting ECG Patient Location: HR:57 bpm ECG Measurements Heart Rate 57 AXIS [place] 165 P 34 QRSd 131 QRS -38 QT 458 T14 QTc 446 <Conclusion> EKG 00:19 Rate 86, intervals normal, sinus rhythm, right bundle branch block, slight alteration from EKG earlier this evening. T waves in V1 and V2 are now upright, minimal flattening of V4 V5 and V6 comparatively, no evidence of significant ST elevations or depressions though, no evidence of STEMI negative for SCARBOSSA bacteria. Echocardiogram Summary: Patient Name: MEERA JAVIER #: [id number]: [place] Ordering Provider: Yony Mccloud #: [id number]: ADM KUSH Primary Care Provider: Indy Junior DODate of Exam: 11/05/19ex: F Admission Date: 11/05/19 : 1935 Age: 84 Exam(s) a US:US echocardiogram APPROVED REPORT EXAM: Comprehensive 2D, Doppler, and color-flow Echocardiogram Patient Location: In-Patient Room/Bed: [facility] Electrician: Chinyere Gabriel RDCS (AE) Indications: Atypical chest pain, Murmur Other Information Study Quality: Good Conclusion Normal left ventricular wall thickness and chamber size. Estimated ejection fraction is 60%. There are no segmental wall motion abnormalities Normal right ventricular size and systolic function Both atria are normal in size Valve is trileaflet and sclerotic without stenosis or regurgitation Mild mitral annular calcification. Trace mitral regurgitation Trace physiologic tricuspid regurgitation Anesthesia Assessment and Plan Anesthesia History Personal History: No History of Anesthesia Complications Family History: No Family History of Anesthesia Complications Exercise Tolerance Exercise Tolerance: Metabolic Equivalents>4 Pertinent Negatives Pertinent Negatives: No Symptoms of GERD, No Major Cardiovascular Symptoms or Complaints, No Major Pulmonary Symptoms or Complaints and No History of CVA/TIA Cardiac & Pulmonary Exam Cardiac Exam: Normal S1/S2 Heart Sounds Pulmonary Exam: Clear Bilateral Breath Sounds Implantable Cardiac Device Does patient have a Pacemaker or an ICD?: No Airway Exam Known Difficult Airway: No Mallampati Class: 2 Mouth Opening: Normal (> 3cm) Thyromental Distance: Greater than 3 cm Neck Range of Motion: Full ROM Neck Circumference: Normal Teeth Condition: Normal Dentition ASA Classification ASA Score: ASA 2 Emergency Case?: No NPO Status NPO Status: NPO Clears >2 hours, Solids >8 hours Anesthesia Plan Resuscitation Status: Full Code Anesthesia Technique: Spinal Anesthesia Airway Planned: Natural Airway Pain Management: Surgeon and patient request nerve block Monitors Used: Standard Monitors
--- NOTE | 2023-01-25 08:31 | W.ANESNERVE ---
Nerve Block Single Injection Procedure Date and Time Date Performed: 01/25/23 Procedure Start: 08:19 Location Where Procedure Performed Procedure Location: Day Surgery Unit Reason Performed: Postoperative Analgesia Requesting Provider: Deandre Gann Timeout Performed Timeout Performed: Yes Monitoring Used ECG, Blood Pressure and SpO2 Sterility Sterility: Hand Hygiene, Surgical Cap, Surgical Mask, Sterile Gloves and Chlorhexidine Sedation Given During Procedure Sedation Given (Indicate Dose Given): Versed IV Dose:: 0.5 mg Patient Mental Status Patient Mental Status: Sedate with meaningful communication Nerve Block 1st Nerve Block: Laterality: Right Block Type: Adductor Canal Ultrasound Image Saved?: Yes Needle / Catheter Used: 100mm SonoPlex II Local Anesthetic Bolus (Indicate Dose Given): Lidocaine used for local infiltration of skin, Injected in 3-5ml increments after negative blood aspiration and Bupivacaine 0.25% Dose:: 15 ml Additives (Indicate Dose Given): Normal Saline Ultrasound: Sterile probe cover and gel used Nerve Stimulator: Not Used Paresthesia: None Procedure Tolerated: No Complications and Patient tolerated well Procedure Outcome: Successful Performed By: Manish Menchaca
[2023-01-25] MEDS: ceFAZolin 2 GM/50 ML BAG IVPB (08:52)
--- NOTE | 2023-01-25 10:32 | W.PM.OP ---
Date of service: 01/25/23 Time of Service: 10:32 Operative Note Operative Note PRE-OP DIAGNOSIS: Right Knee Arthritis with Valgus Deformity POST-OP DIAGNOSIS: same PROCEDURE: RIGHT Total Knee Arthroplasty with Intraoperative Navigation SURGEON: Deandre Gann IMPREGNATOR ELECTROLYTIC CAPACITORS: Lidia Persaud IMPREGNATOR ELECTROLYTIC CAPACITORS: Any Quinteros ANESTHESIA TYPE: Spinal Refer to Anesthesia Record ESTIMATED BLOOD LOSS: 100 PATHOLOGY: none sent TOURNIQUET TIME: 35 COMPLICATIONS: None Patient was transported to: PACU Patient's condition: stable Implants: 1. Depuy Attune Posterior Stabilized Femoral Component, Size 6 2. Depuy Attune Fixed Bearing Tibial Component, Size 5 3. Depuy Attune 6x6 FB/PS Poly 4. Depuy Attune Patellar Component, Size 35 Indications: I have seen Maria Fernanda in clinic for symptoms of knee arthritis, confirmed with radiographic findings. She has exhausted nonoperative methods and was having significant limitations in daily function and desired better function and less pain. I discussed the technical details of a knee replacement. I explained the risks of the procedure to include, but not limited to, bleeding, infection, pain, stiffness, fracture, damage to nerves and vessels, damage to muscles and tendons, loosening, need for repeat procedure, blood clot and cardiopulmonary demise. Despite these risks, Maria Fernanda elected to proceed. Findings: There was significant signs of arthritis throughout the knee with a valgus deformity. Procedure Description: Maria Fernanda was greeted in the preoperative holding area where the correct side was identified and marked. The consent was reviewed with the patient and signed. The history and physical was updated. All questions were answered. Preoperative mediacations were administered: Acetaminophen 1000mg, Celebrex 400mg, and Gabapentin 300mg. An adductor canal block was then administered by the anesthesia team in the PACU. Maria Fernanda was taken back to the operating room. A spinal anesthestic was then administered. The patient was placed into the supine position on the operating room table. A nonsterile tourniquet was placed high onto the leg but only used for cementing. Posts were placed for positioning during the procedure. All bony prominences were well padded. Prophylactic antibiotics in the form of Cefazolin were administered. 1g of Tranxemic Acid was given intravenously within 30 minutes of incision. The right leg was then prepped with Chloraprep and draped in a standard fashion with impervious stockinette and extremity drape with Iodine impregnated skin protection. A timeout to confirm correct identity, side and site, procedure, allergies, anesthesia, and medical concerns was performed. With the knee in some flexion, a midline incision was made overlying the knee. Full thickness skin flaps were raised once the extensor mechanism was encountered. These were raised medially and laterally. Any bleeding was controlled with electrocautery. Once the extensor mechanism was fully exposed, a medial parapatellar arthrotomy was performed in a flexed position. All bleeding from the arthrotomy and the geniculate arteries was coagulated. A medial subperiosteal peel was performed with electrocautery to the midcoronal plane. The fat pad was removed while keeping the patellar tendon protected. The anterior distal femur synovium was removed for later visualization. The ACL and PCL were resected and the anterior horn of the lateral meniscus was transected. The knee was then flexed with the patella everted. Large osteophytes from the tibia were removed. Large osteophytes from the femur were removed. A single starting pin was then placed 1cm anterior to the PCL insertion and the notch in the direction of the femoral head. The OrthoAlign device was applied over the pin. It was oriented to be in line with the epicondylar axis and the trochlear groove. It was then pinned into place. The navigation computer was then turned on and calibrated. The distal femur cut was set at 0 degrees varus/valgus and 3.5 degrees flexion. The distal femur cutting guide then was positioned for a 9mm cut. The distal femur was cut with an oscillating saw while protecting the soft tissues. The tibia was then addressed. The OrthoAlign device was placed over the tibial tubercle and medial tibia and secured into position. Once again, OrthoAlign was calibrated and then set for a 1 degree varus cut and 4 degrees of posterior slope. With this locked into position, the cut thickness stylus was used to assess cut thickness. The lateral side, most involved side, was set for a 4mm cut. This was then held in position and pinned into place with 2 additional pins and a cross pin for stability. The medial and lateral collateral ligaments were protected and the cut was performed. With this completed, it was assessed and noted to be of appropriate dimensions. The guide and OrthoAlign was removed. A spacer block was inserted and the knee was brought into extension. The 6mm spacer block provided full extension, without hyperextension and with stability of both the medial and lateral collateral ligaments was assessed. The pins from the femur and the tibia were then removed. The distal femur was then sized. The anterior stylus was placed onto the lateral ridge of the anterior femur. This indicated a size 6 femur. The gap balancing device was then inserted where the extension gap was measured followed by the flexion gap and then the rotation was set along with the thickness of the posterior cut based on the gap balancing technique. The 4-in-1 cutting guide was the placed. The posterior medial femur cut was evaluated and appeared of good thickness. The spacer block was inserted underneath the cutting guide and stability was confirmed in 90 degrees of flexion. An kenneth wing was used to confirm appropriate position of the anterior cut to avoid notching. This cutting guide was ensured to be flush on the cut surface and then pinned into place with headed pins. While protecting the soft tissues, quad tendon, and collateral ligaments, the anterior and posterior cuts were performed with a saw. The central two pins were removed and the posterior and anterior chamfers were cut next. The notch-cutting guide was placed. This was pinned to lateralize the femoral component as much as possible while keeping it flush on the cut surface. This was then pinned into position. A reciprocating saw was used to make the notch cut. A rasp smoothed the cut surfaces. A trial posterior stabilized femoral component was then inserted, impacted down to the cut surfaces, and the lug holes were drilled. A provisional trial tibial component was placed and the knee was brought through range of motion. There was noted to be excellent extension and flexion. There was no significant instability. The patella was tracking without thumbs. The tibial cut surface was fully exposed. The medial and lateral menisci were removed. The tibia was then sized as a 5. The tibia had been previously marked during trialing to correspond to the center of the tibial component to help with rotation. The trial was aligned to this jovan, approximately rotated to the medial 1/3rd of the tibial tubercle. The trial was pinned into place. The tibia was prepared with a reamer and a keel punch. The knee was then brought into extension and the patella was measured as 22mm. Using the patellar clamp and cut guide, this was resected to a flat surface with at least 13mm of thickness remaining. The size 35 patella fit the best. This was oriented and then clamped into position. The lugs were drilled. The trial components were removed. The final components, except for the polyethylene were opened on the back table. The periosteal and capsular tissues, especially posteriorly, around the knee were then systematically injected with a periarticular cocktail consisting of 246mg of Ropivacaine, 0.5mg of Epinephrine, 0.08mg of Clonidine, and 30mg of Ketorolac, diluted to 100cc. The tourniquet was then inflated to 275mmHg. The knee was thoroughly irrigated with a pulse lavage and dried. On the back table, with the implants opened, the cement was mixed. 2 batches of medium viscosity cement were prepared with vacuum assistance. After the cement was ready a small amount was placed on to the back side of the tibial component at the keel. A small amount was placed onto the posterior flange of the femur. Cement was manual pressurized and impregnated into the cut surface of the tibia. The tibial component was then inserted into the cut surface and impacted into position. Excess cement was removed and the component was reimpacted. Again, excess cement was removed and our attention was then turned to the femur. The femoral cut surface was once again dried and cement was manually impacted into the cut surface. The femoral component was lined with the lug holes and impacted. Excess cement was removed. It was ensured to be down against the cut surface. The trial polyethylene was then inserted and the leg was brought out into full extension for the duration of the cement curing process, approximately 18min. Cement was lastly manually impacted into the cut surface of the patella and the patellar button was clamped into position and held. During this process attention was turned to the gutters of the knee and for all interfaces for any excess cement. The knee was thoroughly irrigated with Surgiphor betadine solution. It was allowed to sit in the wound for 3 minutes before being irrigated out with saline. After the cement had finally cured, approximately 18min, the clamp was removed from the patella and the knee was taken through range of motion. A size 6mm polyethylene component provided the best range of motion and stability with less than 2mm gapping with medial and lateral stress and full extension without significant hyperextension. The patella was tracking with a no-thumbs technique. The trial poly was removed and once again the knee was checked for any loose, excess, or errant cement. The poly component was then inserted and impacted into position after cleaning and drying the tibial tray. The capsule was then reapproximated with a No. 1 Vicryl at multiple locations. The capsule was finally closed with a No. 2 Stratafix, barbed suture. The tourniquet was then released and the arthrotomy appeared watertight without significant bleeding. The second dosing of 1g TXA was started. Deep tissues were then reapproximated with 0 Vicryl and 2-0 Vicryl. The skin was closed with a running 3-0 Monocryl in a subcuticular fashion. This was reinforced with skin glue. A Mepilex silver dressing was applied along with a dhec-pf-oqxcj HANS wrap. A CryoCuff was applied. Maria Fernanda was transferred to the hospital bed without difficulty an suffering no apparent complication. Maria Fernanda has a good prognosis. Physical therapy will start today and without restrictions, weight-bearing as tolerated. Aspirin 81mg BID will be used for DVT prophylaxis.
--- NOTE | 2023-01-25 11:58 | W.PM.DS.N ---
Date of service: 01/25/23 Time of Service: 11:57 DS: Diagnosis Discharge Diagnosis (1) Osteoarthritis of right knee: Status: Chronic Discharge Plan Disposition Patient Disposition: Home Condition: Good Discharge Details Reason For Visit: Right knee DJD Attending Provider: Deandre Gann Primary Care Provider: Indy Junior Home Meds and New Rx's Prescriptions: New celecoxib [Celebrex] 200 mg capsule 200 mg PO BID PRNQty: 60 0RF Rx Instructions: Take one tablet twice daily for pain and inflammation aspirin 81 mg tablet,delayed release (DR/EC) 81 mg PO BID 30 Days Qty: 60 0RF acetaminophen 500 mg tablet 1,000 mg PO Q8H PRN Qty: 90 0RF Rx Instructions: Take two tablets up to every 8 hours as needed for pain pantoprazole 40 mg tablet,delayed release (DR/EC) 40 mg PO DAILY Qty: 14 0RF dexamethasone 4 mg tablet 4 mg PO DAILY Qty: 2 0RF Rx Instructions: Take one tablet once daily for two days docusate sodium [Colace] 100 mg capsule 100 mg PO BID Qty: 30 0RF gabapentin 300 mg capsule 300 mg PO QHS Qty: 14 0RF Rx Instructions: Take one tablet at bedtime oxycodone 5 mg tablet 5 mg PO Q4H PRNQty: 18 0RF Rx Instructions: Take one tablet up to every 4 hours as needed for severe postoperative pain Continued atftzau-ndje-gtnvc-oreg-capryl 100 mg-150 mg- 50 mg-150 mg capsule 1 cap PO DAILY zoledronic xwbf-eavfvbra-mbsaa [Reclast] 5 mg/100 mL piggyback 100 device IV ONCE Qty: 100 0RF Rx Instructions: administer over at least 15 mins vitamin B complex Tablet 1 tab PO DAILY latanoprost 0.005 % drops 1 drp ophthalmic (eye) HS Discontinued aspirin 81 mg tablet,delayed release (DR/EC) 81 mg PO DAILY acetaminophen 500 mg capsule 500 mg PO QHS Patient Comments: for knee pain, 11/2022, [place] Discharge Instructions Additional Instructions: Total Knee Discharge Instructions Activity: The most important activity is to walk and to work on gentle motion (both flexion and extension). You should try to take short walks a few times a day. It is important that when resting you work on keeping the knee straight. Avoid putting a pillow behind the knee as this will encourage flexion. Work on range of motion exercises as provided by Physical Therapy. - Start outpatient physical therapy within 2 weeks. - You should wear the KIM hose on both legs for 2 weeks. You may remove these at night. You may also use any compression sock in place of the KIM hose. - Utilize [employer] to review exercises, see videos on exercises and obtain basic information pertaining to your surgery and your recovery. Dressing: Remove the Mike wrap by 2 days after your surgery and put on the KIM stocking given to you from the hospital. Keep the surgical dressing (underneath the MIKE wrap) in place for at least one week. After the first week it may be removed and replaced with light gauze and tape or nothing. The wound and dressing may get wet after 3 days but avoid soaking the dressing or otherwise it will need to be changed. Many people prefer covering the dressing with cling wrap (saran wrap) to minimize it from getting soaked. If it gets wet, just pat dry. If it starts to peel off then it will need to be changed. Medications: - You should take Tylenol and anti-inflammatory Celebrex as your primary pain control medications. If the Celebrex is too expensive or not covered, please call the office for another alternative (Advil/Ibuprofen or Naproxen/Aleve) - You have been prescribed a stronger pain medication Oxycodone for breakthrough pain, take as needed as prescribed. - You have also been prescribed a stomach acid reduction agent Pantoprozole to help reduce stomach acid and reflux. - You have been prescribed Gabapentin to take at night for restlessness and nerve pain. - You will be taking Aspirin 81mg twice a day for DVT prevention unless instructed otherwise. - You have also been prescribed Decadron to take to control post-operative nausea and pain. You will start this tomorrow. - If you have constipation you should take Colace (which has been prescribed) or Miralax (which is available [id number]). It takes most people 3-4 days to have a bowel movement. Follow-up: 2 weeks If you have any acute concerns or questions, please do not hesitate to contact the office at [phone]. You may contact Dr. Gann with any questions after hours through the hospital at [phone] or on his cell phone at [phone]. Stand Alone Forms: Anesthesia Discharge Inst., Anes.Nerve Block Instructions, Jay Fitch (DSU) Referrals: Deandre Gann MD [ [facility] STAFF PHYSICIAN] - Equipment/Supplies: Walker Activity:: Elevate Remove Dressings/Wound Care:: Do Not Remove Shower/Bathe:: 72 hours and Cover Diet:: As Tolerated Discharge Orders Discharge Orders: Discharge Order (Routine); Ordered 01/25/23 Ordered By: Deandre Gann DS: Summary Time Spent with Patient providing and/or coordinating discharge services: Less than 30 minutes Status at Discharge Functional status at discharge: uses cane/walker Overall status at discharge: patient is progressing back to baseline Mental Status: mental status grossly normal Speech and Movement: speech and movement normal Mood: congruent mood Affect: normal affect Exam Psych Mental Status: mental status grossly normal Speech and Movement: speech and movement normal Mood: congruent mood Affect: normal affect DS: Data Vitals/I&O Vitals and I&O: Vital Signs Temperature 94.3 F L 01/25/23 08:11 Temperature Source Tympanic 01/25/23 08:11 Pulse 58 L 01/25/23 08:11 Pulse Rhythm Regular 01/25/23 07:21 Respiratory Rate 16 01/25/23 08:11 Blood Pressure 140/61 01/25/23 08:11 Blood Pressure Mean 87 01/25/23 08:11 Blood Pressure Position Supine 01/25/23 08:11 Pulse Oximetry 96 01/25/23 08:11 Oxygen Delivery Method Room Air 01/25/23 08:11 Oxygen Flow Rate 0 01/25/23 08:11 Pain Level 0 01/25/23 08:11 Comment Time out performed prior to block. Pt Vs WNL pre/post procedure. Versed given by anesthesia prior to start time.Pt alert but relaxed throughout process. See anesthesia note for more detail. Pt in bed resting callbell within reach monitor on. 01/25/23 08:11 Intake & Output 01/24/23 01/24/23 01/25/23 11:59 23:59 11:59 Weight 84 lb 5.888 oz 187 lb 9.814 oz PFSH All Active Problems Osteoarthritis of right knee (Chronic) TKR sched for Fall 2022 Shoulder pain, right (Acute) Acute, overuse Well woman exam with routine gynecological exam (Acute) Osteoporosis (Chronic) per 10/2020 DEXA, despite active lifestyle & excellent diet. Hx extended kel/menopause, smkg as teen, mo w/ osteoporosis. Heart murmur, systolic (Acute) Pt denies knowing about murmur Hyperlipidemia (Chronic) Medical History Arthritis of knee (02/12/13) Atypical chest pain Pt states was due to gerd/stress and resolved after moving Change in bowel habits Significant effort needed to evacuate; Hx polyps. Pt prefers not to start meds/fiber as actual stool does not seem problematic. Encounter for colorectal cancer screening NEG 08/2020 .. Next PRN (review in 5 yrs) Encounter to establish care with new doctor Transfer from Dr. Candelario, basically very healthy. Sigmoid diverticulosis per colo, 08/2020. No Hx diverticulitis. 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) Hx of colonoscopy (~08/2020) x5 Family History Father Colon cancer Diabetes Hypertension Heart disease Mother Heart disease Low blood pressure Osteoporosis Other Hyperlipidemia Personal history of malignant neoplasm Social History Smoking/Tobacco Use Status: Former Tobacco Use Quit Date: 04/25/1960 Tobacco: How many years used: 10 Smoking risk assessment performed?: Yes Alcohol Intake: former Drug use: Never Substance use type: does not use Household members: none Housing: apartment Number of Children: 4 number of grandchildren: 11 Do you need help understanding health information?: Rarely current occupation: retired Sexually active: No Do you think of yourself as: straight/heterosexual Current gender identity: female What is your relationship status?: Panel score (0-1 are the most socially isolated patients): 0 What type of physical activity do you participate in: other Details: housekeeping of large home, up and down stairs, dog and cat care Do you feel safe at home: Yes Additional Social history: lives alone Time Spent with Patient Time Spent with Patient: <45 minutes Time was spent: ordering medications,tests, procedures, indepentently interpreting results, counseling the patient and care coordination
--- NOTE | 2023-01-25 12:38 | IN_ITS ---
Date of service: 01/25/23 Time of Service: 12:38 PT Notes Visit Reasons: Right knee DJD Physical Therapy Day Surgery Initial Evaluation Date: 01/26/2023 Referring Doctor: KOKI Tillman PT Orders: PT CONSULT: S/p Ortho Surgery Precautions: WBAT on the R LE with AD. Patient Profile/Admitting Diagnosis: Maria Fernanda is an 87-year-old female with degenerative joint disease of the right knee and is status post right total knee arthroplasty on postoperative day 0. PMHX: Medical History?(Updated 01/20/23 @ 13:27 by Lidia Persaud) Arthritis of knee (02/12/13) Atypical chest pain Pt states was due to gerd/stress and resolved after moving Change in bowel habits Significant effort needed to evacuate; Hx polyps. Pt prefers not to start meds/fiber as actual stool does not seem problematic. Encounter for colorectal cancer screening NEG 08/2020 .. Next PRN (review in 5 yrs) Encounter to establish care with new doctor Transfer from Dr. Candelario, basically very healthy.S igmoid diverticulosis per colo, 08/2020. No Hx diverticulitis. Tubular adenoma (~08/2020) Surgical History?(Updated 01/20/23 @ 13:27 by Lidia Persaud) History of appendectomy History of cataract surgery (04/22/16) Right- 04/22/16 Left- 05/06/16 History of dilation and curettage History of tonsillectomy History of total left knee replacement (02/24/22) Hx of colonoscopy (~08/2020) x5 Social History/Home Situation: Lives alone on the first floor of an apartment building with no steps to enter but with an elevator.? Independent with all aspects of ADLs prior to surgery. Equipment Owned/DME: [facility] Subjective: Reports 1/10 pain in the left knee throughout.? Denies headache, chest pain, and lightheadedness throughout session. Objective: Supine in stretcher. General Observation: HANS wraps to right LE.? Cryocuff to right knee.? TEDS on left leg. Mental Status: Oriented x4 Pain: 1/10 left knee ROM: Left Lower Extremity: Hip flexion WFL. Hip abduction WFL. Knee flexion WFL. Ankle dorsiflexion WFL. Ankle plantarflexion WFL. Right Lower Extremity: Hip flexion WFL. Hip abduction WFL. Knee flexion about 10 degrees to 95 degrees.? Knee extension about -10 degrees.? Ankle dorsiflexion WFL. Ankle plantarflexion WFL. Strength: Right Lower Extremity: Hip flexors 5/5. Hip abductors 5/5. Knee flexors 5/5. Knee extensors 5/5. Ankle dorsiflexors 5/5. Ankle plantarflexors 5/5. Left Lower Extremity:Hip flexors 5/5. Hip abductors 5/5. Knee flexors 3-/5. Knee extensors 3-/5. Ankle dorsiflexors 5/5. Ankle plantarflexors 5/5. Sensation: Intact as to pain and light pressure in bilateral lower extremities Bed Mobility/Transfers: Supine to sit standby assist Sit to stand standby assist Stand to sit standby assist Bed to chair standby assist Gait: 150 feet using front-wheeled walker with step-to gait pattern requiring standby assist.? Good quad activation on the right.? Motor cueing provided for much improved posture and safer gait speed. Balance: Static Sitting: Normal Dynamic Sitting: Normal Static Standing: Fair Dynamic Standing: Fair Special Tests: Mobility Limitations Standardized Measure [facility] 6 clicks Basic Mobility Inpatient Short Form: Raw Score: 24? CMS Score: 0% deficit ? ? Informed Consent/Education:? Patient instructed in purpose of PT consult.? Packet containing TKA exercise protocol has been given to patient. Trained patient with correct performance of exercises below to maximize motor control, joint flexibility, soft tissue extensibility of the R knee musculature. Access Code: [email or web address] URL: [email or web address] Date: 01/26/2023 Prepared by: Syl Arrington Exercises - Supine Quad Set - 1 x daily - 7 x weekly - 1 sets - 10 reps - 5 hold - Supine Heel Slide - 1 x daily - 7 x weekly - 1 sets - 10 reps - 5 hold - Supine Ankle Pumps - 1 x daily - 7 x weekly - 1 sets - 10 reps - 5 hold - Small Range Straight Leg Raise - 1 x daily - 7 x weekly - 1 sets - 10 reps - 5 hold - Seated March - 1 x daily - 7 x weekly - 1 sets - 10 reps - 5 hold ASSESSMENT: Maria Fernanda presents functional mobility decline requiring the use of a front-wheeled walker for all mobility ADL performance to reduce fall risk and maximize independence.? Patient presents with clinical signs and symptoms consistent with current/admitting diagnoses that have resulted to mobility limitations, gait instability, generalized weakness, and impairment of motor control as demonstrated by the following impairment level findings: 1.? Decreased strength to rightknee major muscle groups 2.? Impaired standing balance 3.? Limitation of joint range of motion in right knee Impairments are contributing to the following functional limitations: 1.? Inability to safely ambulate without assistive device 2.? Increase completion time for mobility ADL performance 3.? Increased fall risk Patient is assessed as a [id number] moderate complexity based on the following: History: 86-year-old female with impairment level findings, functional limitations, and past medical history as indicated above Examination: Demonstrable impairment in strength, balance, and mobility level with underlying impairments and functional limitations as documented above Presentation: Evolving Decision Makin moderate complexity Goals: N/A.? PT evaluation and 1-2 treatment sessions only for functional mobility training using recommended AD and for HEP instruction. Plan of Care/Treatment Plan: N/A.? PT evaluation and 1-2 treatment session only for functional mobility training using recommended AD and for HEP instruction. DISCHARGE RECOMMENDATIONS: [] ? Home with no services [] [] ? Home with services [specify] [X] ? Home with outpatient PT.? Home when medically cleared by orthopedic surgeon.? May benefit from outpatient PT services in order to optimize functional mobility outcomes and facilitate independent community ambulation with least restrictive ambulatory device [] ? SNF for continued rehabilitation [] [] ? Shelter Care [] [] ? SNF versus LTC based on ability to participate and progress [] TREATMENT CODE/TIME: 9716 2 x 29 minutes for 1 unit beginning at 12:38 PM. Thank you for the opportunity to participate in the care of this patient. Syl Arrington PT, DPT, CLT [facility] [place], [place]
--- NOTE | 2023-01-26 08:14 | W.ANESPOSTOP ---
Postoperative Evaluation Date, Time and Location Date Performed: 01/25/23 Time Performed: 11:45 Patient Location: Day Surgery Unit Vital Signs Most Recent Imported Vital Signs: Most Recent Vital Signs Temp Pulse Resp BP Pulse Ox 36.2 C L 60 16 151/57 H 99 01/25/23 11:32 01/25/23 11:32 01/25/23 11:32 01/25/23 11:32 01/25/23 11:32 Pain Score Most Recent Pain Score: Most Recent Pain Score Pain Level 0 01/25/23 11:32 Assessment Mental Status: Awake (Alert & Oriented to Patient Baseline) Airway and Respiratory Function: Patent airway with normal (patient baseline) respiratory exam Cardiovascular Function: Hemodynamically Stable Hydration Status: Adequately Hydrated Nausea & Vomiting: No Nausea or Vomiting Pain: Pt. Denies Any Pain Peripheral Nerve Block: Regional nerve block not resolved at time of post operative discharge
== END 2023-01-25 13:30 | disposition home or self-care (01) ==
PROVIDERS: PCP Student in an Organized Health Care Education/Training Program; Visit Provider Student in an Organized Health Care Education/Training Program
PROC: (CPT 27447; principal; 2023-01-25 09:15)
DX: M17.11 Unilateral primary osteoarthritis, right knee (principal); M81.0 Age-related osteoporosis without current pathological fracture; E78.5 Hyperlipidemia, unspecified
CPT/HCPCS: 20985; 27447; C1776; 76942; 97162; J0690; J2250; J2405

== ENCOUNTER 2023-02-07 12:58 | Outpatient (CLI) | payer MEDICARE, SELFPAY ==
--- NOTE | 2023-02-07 09:45 | DI.RAD_ITS ---
Exam(s) XR STANDING ALIGNMENT XR KNEE RT 1V EXAM: XR STANDING ALIGNMENT and XR knee RT 1 V CLINICAL HISTORY: 1st post op R TKA. TECHNIQUE: 2D digital imaging was performed. Five images were obtained. COMPARISON: CR XR STANDING ALIGNMENT from 03/11/2022 CR XR KNEE LT 1V from 03/11/2022 CR XR KNEE RT 1V from 02/07/2023 FINDINGS: BONES: There are mild degenerative changes seen in the hips bilaterally characterized by joint space narrowing and osteophytes, right greater than left. There are calcifications seen in the pelvis like ly reflecting calcified fibroids. The patient has bilateral total knee replacements. The orthopedic hardware appears in good position. The hardware appears well seated. The ankles are well maintaine d.The right lower extremities 1 cm shorter than the left lower extremity. SOFT TISSUE: Normal. IMPRESSION: Bilateral total knee replacements. DATA REPOSITORY: RADIATION DOSE DELIVERED:
== END 2023-02-07 12:59 | disposition home or self-care (01) ==
LOC: DIORS 12:58
PROVIDERS: PCP Student in an Organized Health Care Education/Training Program; Referring Provider Student in an Organized Health Care Education/Training Program; Visit Provider Student in an Organized Health Care Education/Training Program
DX: Z96.651 Presence of right artificial knee joint (principal); Z47.1 Aftercare following joint replacement surgery
CPT/HCPCS: 73560; 77073

== ENCOUNTER 2023-02-24 11:13 | Outpatient (CLI) | payer MEDICARE, SELFPAY ==
--- NOTE | 2023-02-24 08:45 | DI.RAD_ITS ---
Exam(s) XR KNEE LT 2V AP,LAT EXAM: XR KNEE LT 2V AP,LAT CLINICAL HISTORY: ANNUAL F/U L TKA. TECHNIQUE: 2D digital imaging was performed. Two images were obtained. AP and lateral views were ob tained. COMPARISON: CR XR KNEE LT 1V from 03/11/2022 CR XR STANDING ALIGNMENT from 02/07/2023 FINDINGS: BONES: There are stable post operative changes of a left total knee replacement present. No fracture or dislocation. JOINTS: The orthopedic hardware is in good position. No evidence of hardware loosening. SOFT TISSUE: Atherosclerosis is present. IMPRESSION: Stable postoperative changes. DATA REPOSITORY: RADIATION DOSE DELIVERED:
--- NOTE | 2023-02-24 08:45 | DI.RAD_ITS ---
Exam(s) XR KNEE RT 2V AP,LAT EXAM: XR KNEE RT 2V AP,LAT CLINICAL HISTORY: ANNUAL F/U R TKA. TECHNIQUE: 2D digital imaging was performed. Two images were obtained. AP and lateral views were ob tained. COMPARISON: CR XR STANDING ALIGNMENT from 02/07/2023 CR XR KNEE RT 1V from 02/07/2023 FINDINGS: BONES: There are stable post operative changes of a right total knee replacement present. No fractur e or dislocation. JOINTS: The orthopedic hardware is in good position. No evidence of hardware loosening. SOFT TISSUE: Normal. IMPRESSION: Stable postoperative changes. DATA REPOSITORY: RADIATION DOSE DELIVERED:
== END 2023-02-24 11:14 | disposition home or self-care (01) ==
LOC: DIORS 11:14
PROVIDERS: PCP Student in an Organized Health Care Education/Training Program; Visit Provider Student in an Organized Health Care Education/Training Program
DX: Z96.651 Presence of right artificial knee joint (principal); Z47.1 Aftercare following joint replacement surgery; Z96.652 Presence of left artificial knee joint
CPT/HCPCS: 73560

== ENCOUNTER → 2023-03-07 10:33 | Outpatient (BNVA) | payer MEDICARE, SELFPAY | PROVIDERS: PCP Student in an Organized Health Care Education/Training Program; Referring Provider Student in an Organized Health Care Education/Training Program; Visit Provider Student in an Organized Health Care Education/Training Program ==

== ENCOUNTER 2023-08-01 03:51 | Outpatient (RCR) | payer MEDICARE, SELFPAY ==
[2023-08-01] MEDS: ZOLEDRONIC ACID/MANNITOL/WATER 5 MG/100 ML BTL 300 MG IVPB (08:56)
[2023-08-01] MEDS: Normal Saline Flush 10 ML SYR IVP (08:57)
== END 2023-08-23 23:59 | disposition home or self-care (01) ==
LOC: INF 03:51
PROVIDERS: PCP Student in an Organized Health Care Education/Training Program; Visit Provider Student in an Organized Health Care Education/Training Program
DX: M81.0 Age-related osteoporosis without current pathological fracture (principal)
CPT/HCPCS: 96365; J3489

== ENCOUNTER 2024-03-02 10:12 | Outpatient (CLI) | payer MEDICARE, SELFPAY ==
--- NOTE | 2024-03-02 09:41 | DI.RAD_ITS ---
Exam(s) XR KNEE RT 2V AP,LAT EXAM: XR KNEE RT 2V AP,LAT CLINICAL HISTORY: ANNUAL F/U R TKA. TECHNIQUE: 2D digital imaging was performed. Two images were obtained. AP and lateral views were ob tained. COMPARISON: CR XR KNEE RT 2V AP,LAT from 02/24/2023 FINDINGS: BONES: There are stable post operative changes of a right total knee arthroplasty present. No fractu re or dislocation. JOINTS: The orthopedic hardware is in good position. No evidence of hardware loosening. SOFT TISSUE: Normal. IMPRESSION: Stable right total knee arthroplasty. DATA REPOSITORY: RADIATION DOSE DELIVERED:
== END 2024-03-02 10:13 | disposition home or self-care (01) ==
LOC: DIORS 10:13
PROVIDERS: PCP Student in an Organized Health Care Education/Training Program; Referring Provider Student in an Organized Health Care Education/Training Program; Visit Provider Physician Assistant
DX: Z47.1 Aftercare following joint replacement surgery (principal); Z96.651 Presence of right artificial knee joint
CPT/HCPCS: 99213; 73560

== ENCOUNTER 2025-02-13 07:50 | Emergency (ER) | payer MEDICARE, SELFPAY ==
[2025-02-13 08:00] VITALS: BP 172/65; PULSE 65; RESP 16; TEMP 36.4; O2SAT 98
--- NOTE | 2025-02-13 08:00 | DI.CT_ITS ---
Exam(s) CT HEAD WO EXAM: CT HEAD WO CLINICAL HISTORY: right frontal hematoma post HI, fall from standing. TECHNIQUE: Imaging Protocol: Axial computed tomography images with coronal and sagittal reformatted images were created and reviewed COMPARISON: No exams were available for comparison FINDINGS: Ventricles and Extra axial spaces: Normal in size and morphology for the patient's age. Hemorrhage: None. Cerebral parenchyma: There is no evidence of an acute territorial infarct or mass effect. Midline shift: None. Brainstem/Cerebellum: Normal. Calvarium: Normal. Visualized Paranasal sinuses/Mastoids: Clear. Soft Tissues: There is a small scalp hematoma overlying the right frontal bone. IMPRESSION: 1. No acute intracranial process. 2. Small scalp hematoma overlying the right frontal bone. RADIATION DOSE DELIVERED: 972.48mGy.cm Total DLP DATA REPOSITORY: All CT scans at this facility are submitted to the National Radiology Data Registry (NRDR) Dose Index Registry (DIR) with the [employer] (ACR). RADIATION OPTIMIZATION: All CT scans at this facility use at least one of these dose optimization techniques: automated exposure control; mA and/or kV adjustment per patient size (includes targeted exams where dose is matched to clinical indication); or iterative reconstruction.
--- NOTE | 2025-02-14 09:17 | W.ED.GENAD ---
Discharge Plan Disposition Patient Disposition: Home Discharge Details Clinical Impression: Head injury, Hematoma Primary Care Provider: Corie Vanegas ED Provider: Angie Larson Home Meds and New Rx's Prescriptions: Continued cholecalciferol (vitamin D3) 10 mcg (400 unit) capsule 10 mcg PO DAILY zoledronic [id number] [Reclast] 5 mg/100 mL piggyback 100 device IV ONCE Qty: 100 0RF Patient Comments: Takes once a year Rx Instructions: administer over at least 15 mins vitamin B complex Tablet 1 tab PO DAILY latanoprost 0.005 % drops 1 drp ophthalmic (eye) HS aspirin 81 mg tablet 81 mg PO DAILY Discharge Instructions Instructions: Minor Head Injury, Adult ED Additional Instructions: take tylenol as needed for pain may apply ice topically as needed should you develop worsening pain, headache, vomiting, or with any new or worsening complaints, please return for reassessment Referrals: Corie Vanegas APRN [Primary Care Provider, [facility]] Discharge Data Discharge Date/Time-TO BE ENTERED AT DEPARTURE: 02/13/25 09:15 HPI General Date/Time Provider Initiated Documentation: 02/13/25 08:05. HPI Narrative: This 89-year-old female presents with report of head injury just prior to arrival. She states that she tripped over her puppy and fell hit her head on the wall. She is not anticoagulated. She denies any loss of consciousness. The event occurred approximately an hour and a half prior to arrival. She does complain of an area of tenderness on her forehead that is bruised. She denies any nausea vomiting dizziness. She states the pain is actually resolving. Related Data Home Medications ?Medication ?Instructions ?Recorded ?Confirmed latanoprost 0.005 % eye drops 1 drp ophthalmic (eye) HS 08/21/20 02/13/25 zoledronic acid 5 mg/100 mL in 100 device IV ONCE #100 mL 05/19/21 02/13/25 mannitol 5 %-water intravenous piggybck (Reclast) vitamin B complex 1 tab PO DAILY 12/29/21 02/13/25 cholecalciferol (vitamin D3) 10 10 mcg PO DAILY 01/26/24 02/13/25 mcg (400 unit) capsule aspirin 81 mg tablet 81 mg PO DAILY 02/13/25 02/13/25 Previous Rx's ?Medication ?Instructions ?Recorded zoledronic acid 5 mg/100 mL in 100 device IV ONCE #100 mL 05/19/21 mannitol 5 %-water intravenous piggybck (Reclast) Allergies Allergy/AdvReac Type Severity Reaction Status Date / Time aspirin AdvReac Mild abdominal Verified 02/13/25 08:04 discomfort General Stated Complaint: HeadInjury OWEN: 3 Exam Narrative Exam Narrative: Hematoma noted to right frontal region, pupils equal round reactive to light accommodation GCS 15 no cervical spine tenderness, answering questions appropriately ambulatory with steady gait, cranial nerves II through XII intact, no tenderness to chest abdomen pelvis or arms. Course Vital Signs Vital signs: Vital Signs Temperature 36.4 C 02/13/25 08:00 Pulse 65 02/13/25 08:00 Respiratory Rate 16 02/13/25 08:00 Blood Pressure 172/65 H 02/13/25 08:00 Pulse Oximetry 98 02/13/25 08:00 Temperature 36.4 C 02/13/25 08:00 Temperature Source Oral 02/13/25 08:00 Pulse 65 02/13/25 08:00 Respiratory Rate 16 02/13/25 08:00 Respiratory Effort Normal 02/13/25 09:11 Respiratory Depth Normal 02/13/25 09:11 Respiratory Pattern Normal 02/13/25 09:11 Blood Pressure 172/65 H 02/13/25 08:00 Blood Pressure Position Sitting 02/13/25 08:00 Pulse Oximetry 98 02/13/25 08:00 Oxygen Delivery Method Room Air 02/13/25 08:00 Oxygen Flow Rate 0 02/13/25 08:00 Pain Level 2 02/13/25 09:11 Medical Decision Making Results: CT head per radiology interpretation my review does not show evidence of frontal bone fracture or hemorrhage intracranially Assessment and plan: Patient is ambulatory without evidence of concussion and CT is reassuring. She is encouraged to apply ice as needed and Tylenol as needed for pain. Return precautions reviewed in detail patient discharged home in stable condition. She was encouraged to have her blood pressure rechecked by her primary care physician. PFSH All Active Problems (Updated 02/13/25 @ 08:45 by KOKI Mercedes) Hematoma (Acute) Head injury (Acute) Cough (Acute) Facial rash (Acute) Shoulder pain, right (Acute) Acute, overuse Well woman exam with routine gynecological exam (Acute) Osteoporosis (Chronic) per 10/2020 DEXA, despite active lifestyle & excellent diet. Hx extended kel/menopause, smkg as teen, mo w/ osteoporosis. Heart murmur, systolic (Acute) Pt denies knowing about murmur Hyperlipidemia (Chronic) Medical History (Updated 02/13/25 @ 08:45 by KOKI Mercedes) Sigmoid diverticulosis per colo, 08/2020. No Hx diverticulitis. Tubular adenoma (~08/2020) Encounter for colorectal cancer screening NEG 08/2020 .. Next PRN (review in 5 yrs) Change in bowel habits Significant effort needed to evacuate; Hx polyps. Pt prefers not to start meds/fiber as actual stool does not seem problematic. Atypical chest pain Pt states was due to gerd/stress and resolved after moving Encounter to establish care with new doctor Transfer from Dr. Candelario, basically very healthy. Arthritis of knee (02/12/13) Surgical History (Updated 02/24/23 @ 09:20 by KOKI Resendiz) History of total right knee replacement (01/25/23) History of total left knee replacement (02/24/22) Hx of colonoscopy (~08/2020) x5 History of cataract surgery (04/22/16) Right- 04/22/16 Left- 05/06/16 History of tonsillectomy History of dilation and curettage History of appendectomy Family History Father Colon cancer Diabetes Hypertension Heart disease Mother Heart disease Low blood pressure Osteoporosis Other Hyperlipidemia Personal history of malignant neoplasm Social History Smoking/Tobacco Use Status: Former Tobacco Use Quit Date: 04/25/1960 Tobacco: How many years used: 10 Smoking risk assessment performed?: Yes Alcohol Intake: former Drug use: Never Substance use type: does not use Household members: none Housing: house Number of Children: 4 number of grandchildren: 11 Do you need help understanding health information?: Rarely current occupation: retired Sexually active: No Do you think of yourself as: straight/heterosexual Current gender identity: female What is your relationship status?: Panel score (0-1 are the most socially isolated patients): 0 What type of physical activity do you participate in: other Details: housekeeping of large home, up and down stairs, dog and cat care Do you feel safe at home: Yes Do you feel safe in your relationship?: Yes Additional Social history: lives alone
== END 2025-02-13 09:15 | disposition home or self-care (01) ==
PROVIDERS: Emergency Provider Physician Assistant; PCP Nurse Practitioner Family
DX: S00.03XA Contusion of scalp, initial encounter (principal); Z79.82 Long term (current) use of aspirin; Z87.891 Personal history of nicotine dependence; W01.0XXA Fall on same level from slipping, tripping and stumbling without subsequent striking against object, initial encounter; Y93.01 Activity, walking, marching and hiking; Y92.018 Other place in single-family (private) house as the place of occurrence of the external cause
CPT/HCPCS: 99284; 70450

== ENCOUNTER 2025-02-22 10:12 | Outpatient (CLI) | payer MEDICARE, SELFPAY ==
--- NOTE | 2025-02-22 10:00 | RT.EKG_ITS ---
APPROVED REPORT Exam: Resting ECG Reason for Exam: irregular heart rythm Patient Location: O HR:81 bpm ECG Measurements Heart Rate 81 AXIS LA 156 P 50 QRSd 128 QRS -43 QT 399 T 56 QTc 464 Conclusion Sinus rhythm...normal P axis, V-rate 50- 99 Multiform ventricular premature complexes...short R-R, variable morphology RBBB and LAFB...QRSd >120mS, axis(-40,240) Left ventricular hypertrophy...multiple voltage criteria
== END 2025-02-22 10:13 | disposition home or self-care (01) ==
LOC: DI.KIM 10:13
PROVIDERS: PCP Nurse Practitioner Family; Visit Provider Family Medicine
DX: I49.9 Cardiac arrhythmia, unspecified (principal); I44.4 Left anterior fascicular block
CPT/HCPCS: 93010

== ENCOUNTER 2025-02-28 09:31 | Outpatient (CLI) | payer MEDICARE, SELFPAY | END 2025-02-28 09:32 | disposition home or self-care (01) | PROVIDERS: PCP Nurse Practitioner Family; Visit Provider Family Medicine | DX: I49.3 Ventricular premature depolarization (principal) | CPT/HCPCS: 93246 ==

== ENCOUNTER 2025-03-26 07:24 | Outpatient (CLI) | payer MEDICARE, SELFPAY ==
--- NOTE | 2025-03-26 09:55 | CER_ITS ---
Date of service: 03/26/25 Time of Service: 09:55 Cardiac Event Recorder Referring Provider:: Jose Aquino Indications:: Premature ventricular contractions Cardiac Event Note: This is a cardiac event monitor. Patient was monitored for 13 days and 21 hours Rhythm throughout was sinus. Average heart rate was 68. Minimum was 43, maximum 137 There were very rare isolated ventricular ectopic beats There were occasional atrial premature beats. There were multiple brief self- limited atrial runs. These were generally less than 10 beats in length There was no atrial fibrillation, no high-grade AV block, no pauses greater than 3 seconds 1 symptom was reported which correlated to an isolated atrial premature beat
== END 2025-03-26 07:25 | disposition home or self-care (01) ==
LOC: CARDOPNVT 07:24
PROVIDERS: PCP Nurse Practitioner Family; Visit Provider Internal Medicine Cardiovascular Disease
DX: I49.3 Ventricular premature depolarization (principal); I48.91 Unspecified atrial fibrillation
CPT/HCPCS: 93248